=== PATIENT | female | born 1970 | race Caucasian/White ===

== ENCOUNTER 2024-04-23 07:49 | Outpatient (AMB) | payer OTHER, SELFPAY ==
--- NOTE | 2024-04-23 07:54 | MHC.OFFVIS ---
Vital Signs 04/23/24 08:01 Height 5 ft 4 in Weight 203 lb 6 oz BMI 34.9 BP 126/70 Blood Pressure Location Rt brachial Position Sitting Respiration 16 Pulse 65 Pulse Source Pulse Oximeter Pulse Oximetry (%) 97 Oxygen Delivery Method Room Air Intake Visit Reasons: ENP: R sided weakness/frequent falls - Confirmed Intake Note: Pt presents to the office for new pt consultation for right sided weakness and frequent falls. 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 muffled speech etc.The episodes lasted few seconds- taking a deep breath helped.SHe was worked up for TIA MRI brain showed non specific white matter changes, carotid doppler was normal ASHANTI normal Lyme negative LDL was elevated and she was started on atorvostatin . she has h/o anxiety and was very stressed at that time. she has h/o labrynthitis and has balance issues . she had a fall when she rushed down the stairs 1 year ago.No falls since then she denies double vision. she has hand tingling and was told she had carpal tunnel. In 2018 she was seen by Dr Rodríguez- he did EEG which was normal MRI showed white matter changes. she denies headaches during these episodes. she feels her espidoes have decreased- she feels her right leg drags when she is walking , she ott sword finding difficulties. Mood- is better. She is sleeping better with trazadone. she has loud snoring , Has some daytime fatigue. she started having mood issues 30 years ago when she was going through marital issues.she feels she did not deal with her parents divorce. she was seeing a psychiatrist about 20 years ago . [facility] Medical History (Updated 04/23/24 @ 08:53 by Kerline Rain MD) Anxiety Hypersomnia Snoring Transient neurological symptoms Slurring of speech Asthma Obesity Pure hyperglyceridemia Vertigo Chondrocalcinosis Cyst of right ovary Ovarian tumor, malignant Insomnia Anxiety (~04/23/24) Surgical History H/O medial meniscus repair of left knee H/O total hysterectomy Social History Alcohol intake: current Comment: 5 drinks/week Patient Tobacco Use Status: Former Tobacco user Years Smoked: 20 years Physical Exam Vital Signs: Last Vital Signs Pulse 65 04/23/24 08:01 Resp 16 04/23/24 08:01 BP 126/70 04/23/24 08:01 Pulse Ox 97 04/23/24 08:01 Oxygen Delivery Method Room Air 04/23/24 08:01 BMI result Body Mass Index 34.9 Const General: cooperative, healthy appearing, comfortable and no acute distress Nutritional Appearance: obese Orientation/consciousness: patient oriented x3 Eyes Pupils: Equal, round and reactive pupils present Neck Neck: Yes no meningeal signs Neuro General: patient oriented x3, gait normal, tone normal, moves all extremities, no meningeal signs and no focal motor deficits Cranial nerves: Yes Facial sensation intact/muscles of mastication intact, Yes Equal, round and reactive pupils present, Yes Bilaterally intact EOM present, Yes Nystagmus not present, Yes Midline tongue present, Yes Symmetric palate elevation present and Yes Ability to bilaterally elevate shoulders present Cognition (Neuro): normal cognition Gait exam (Neuro): Normal gait present Motor exam (neuro): 5/5 motor strength present throughout and Normal motor muscle tone present throughout Deep tendon reflexes (DTR's): Right triceps reflex intensity grade: 1+, Left triceps reflex intensity grade: 1+, Rt Biceps (C5, C6): 1+, Left biceps reflex intensity grade: 1+, Right brachioradialis reflex intensity grade: 1+, Left brachioradialis reflex intensity grade: 1+, Right patellar reflex intensity grade: 1+ and Left patellar reflex intensity grade: 1+ Coordination: [id number] test normal Psych Appearance: grossly normal Affect: Anxious affect present Assessment & Plan Assessment & Plan (1) Slurring of speech: Comment: ? anxiety related Code(s): R47.81 - Slurred speech Category: Medical (2) Transient neurological symptoms: Code(s): R29.818 - Other symptoms and signs involving the nervous system Category: Medical (3) Snoring: Code(s): R06.83 - Snoring Category: Medical (4) Hypersomnia: Code(s): G47.10 - Hypersomnia, unspecified Category: Medical Plan will evaluate her with Home sleep test to r/o sleep apnea MRI brain Carotid doppler will consider starting aspirin 81mg qd Psyhcology ref for management of anxiety Orders: Orders RT home sleep study Today G47.10 - Hypersomnia, unspecified, R06.83 - Snoring MR head/brain wo con Today R29.818 - Other symptoms and signs involving the nervous system, R47.81 - Slurred speech US carotid duplex BI Today R29.818 - Other symptoms and signs involving the nervous system, R47.81 - Slurred speech Referrals Psychology Referral F41.9 - Anxiety disorder, unspecified Coding Level of Care Code New Pt Level 4 (24239) Complex EM visit Add On G2211 Diagnoses Slurring of speech R47.81 Transient neurological symptoms R29.818 Snoring R06.83 Hypersomnia G47.10
[2024-04-23 08:01] VITALS: BP 126/70; PULSE 65; RESP 16; O2SAT 97; BMI 34.9
== END 2024-04-23 08:57 | disposition home or self-care (01) ==
PROVIDERS: PCP Student in an Organized Health Care Education/Training Program; Visit Provider Psychiatry & Neurology Neurology
DX: R47.81 Slurred speech (principal); R29.818 Other symptoms and signs involving the nervous system; R06.83 Snoring; G47.10 Hypersomnia, unspecified
CPT/HCPCS: 99204; G2211

== ENCOUNTER → 2024-04-23 07:49 | Outpatient (BNVA) | payer OTHER, SELFPAY | PROVIDERS: PCP Student in an Organized Health Care Education/Training Program; Visit Provider Psychiatry & Neurology Neurology ==

== ENCOUNTER 2024-05-11 14:51 | Outpatient (REF) | payer OTHER, SELFPAY ==
--- NOTE | ~2024-05-11 | US_ITS ---
EXAMINATION: US EXTRACRANIAL CAROTID DUPLEX, BILATERAL CLINICAL INFORMATION: Slurred speech COMPARISON: None available. TECHNIQUE: Real-time ultrasound and Doppler techniques (integrating B-mode 2-D vascular images, Doppler spectral analysis and color-flow Doppler imaging) were utilized to interrogate the extracranial carotid arteries, the vertebral arteries and proximal subclavian arteries bilaterally. The degree of stenosis is determined by criteria similar to NASCET. FINDINGS: Right Side: 1. There is no atherosclerotic plaque seen in the bifurcation/proximal ICA region. 2. The common carotid artery PSV proximally is 110 cm/s and distally 84 cm/s. 3. The proximal internal carotid artery velocities are 62 cm/s systolic and 15 cm/s diastolic. 4. The proximal external carotid artery PSV is 83 cm/s. 5. The vertebral artery shows antegrade flow. 6. The subclavian artery waveforms are normal. Left Side: 1. There is no atherosclerotic plaque seen in the bifurcation/proximal ICA region. 2. The common carotid artery PSV proximally is 97 cm/s and distally 74 cm/s. 3. The proximal internal carotid artery velocities are 74 cm/s systolic and 15 cm/s diastolic. 4. The proximal external carotid artery PSV is 94 cm/s. 5. The vertebral artery shows antegrade flow. 6. The subclavian artery waveforms are normal. US/US carotid duplex BI IMPRESSION: 1. RIGHT: Normal right internal carotid artery without atherosclerotic plaque or hemodynamically significant stenosis. 2. LEFT: Normal left internal carotid artery without atherosclerotic plaque or hemodynamically significant stenosis. Electronically signed by: Ruby Gavin MD 05/14/2024 12:06 PM EDT
== END 2024-05-11 14:52 | disposition home or self-care (01) ==
LOC: HO.US 14:51
PROVIDERS: PCP Student in an Organized Health Care Education/Training Program; Visit Provider Psychiatry & Neurology Neurology
DX: R29.818 Other symptoms and signs involving the nervous system (principal); R47.81 Slurred speech
CPT/HCPCS: 93880

== ENCOUNTER → 2024-05-20 15:32 | Outpatient (REF) | payer OTHER, SELFPAY | LOC: HO.SL 15:32 | PROVIDERS: PCP Student in an Organized Health Care Education/Training Program; Visit Provider Psychiatry & Neurology Neurology | DX: G47.10 Hypersomnia, unspecified (principal); R06.83 Snoring | CPT/HCPCS: 95806 ==

== ENCOUNTER → 2024-05-20 15:59 | Outpatient (BNV) | payer OTHER, SELFPAY | PROVIDERS: PCP Student in an Organized Health Care Education/Training Program; Visit Provider Psychiatry & Neurology Neurology | DX: R06.83 Snoring (principal); G47.10 Hypersomnia, unspecified | CPT/HCPCS: 95806 ==

== ENCOUNTER 2024-07-27 16:32 | Outpatient (REF) | payer OTHER, SELFPAY ==
--- NOTE | ~2024-07-27 | MR_ITS ---
EXAMINATION: MR BRAIN WITHOUT CONTRAST CLINICAL INFORMATION: Right-sided neurologic symptoms. COMPARISON: None available. TECHNIQUE: MRI of the brain was obtained using routine sequences without contrast. FINDINGS: No focal restricted diffusion is demonstrated to suggest acute or subacute cerebral ischemia. No evidence of acute or chronic hemorrhagic products on heme-sensitive imaging. Few scattered periventricular and deep white matter T2 FLAIR hyperintensities (some of which are in a perivenular distribution). The ventricles are normal in morphology and size. No abnormal mass effect. No midline shift. Normal appearance of the pituitary gland. Normal positioning of the cerebellar tonsils. Normal arterial and venous vascular flow voids are present. Normal, homogeneous marrow signal. Mild mucosal thickening of the paranasal sinuses. No signal abnormalities within the mastoids. MR/MR head/brain wo con IMPRESSION: 1. No acute intracranial abnormalities. 2. Mild nonspecific white matter changes. While these changes are nonspecific, the distribution could be seen as sequela of a demyelinating process. Electronically signed by: Darrel Ibrahim DO 08/11/2024 07:12 AM GENNA SCHMITZ
== END 2024-07-27 16:33 | disposition home or self-care (01) ==
LOC: HO.MRI 16:32
PROVIDERS: PCP Student in an Organized Health Care Education/Training Program; Visit Provider Psychiatry & Neurology Neurology
DX: R29.818 Other symptoms and signs involving the nervous system (principal); R47.81 Slurred speech
CPT/HCPCS: 70551

== ENCOUNTER → 2024-08-04 20:30 | Outpatient (REF) | payer OTHER, SELFPAY | LOC: HO.SL 20:30 | PROVIDERS: PCP Student in an Organized Health Care Education/Training Program; Visit Provider Psychiatry & Neurology Neurology | DX: R06.83 Snoring (principal); G47.10 Hypersomnia, unspecified | CPT/HCPCS: 95810 ==

== ENCOUNTER → 2024-08-04 22:07 | Outpatient (BNV) | payer OTHER, SELFPAY | PROVIDERS: PCP Student in an Organized Health Care Education/Training Program; Visit Provider Psychiatry & Neurology Neurology | DX: G47.33 Obstructive sleep apnea (adult) (pediatric) (principal) | CPT/HCPCS: 95810 ==

== ENCOUNTER 2024-12-14 08:31 | Outpatient (AMB) | payer OTHER, SELFPAY ==
--- NOTE | 2024-12-14 08:33 | MHC.PC.OV ---
Vital Signs 12/14/24 08:42 Height 5 ft 4 in Weight 213 lb 8 oz BMI 36.6 BP 138/76 Blood Pressure Location Rt brachial Position Sitting Respiration 16 Pulse 71 Pulse Source Pulse Oximeter Temp 97.7 F Temp Source Oral Pulse Oximetry (%) 97 Oxygen Delivery Method Room Air Intake Visit Reasons: Est care / anxiety Intake Note: patient here for new patient visit Artificial Leather Calender Operator Required: No Is last menstrual period known: No Post menopausal: No Patient : No Allergies No Known Allergies Allergy (Verified 12/14/24 08:56) Medication List - Last Reconciled 12/14/24 by Linda Amaya CNP magnesium chloride mg PO omega-3 fatty acids 500 mg PO DAILY sertraline 25 mg PO DAILY trazodone 50 mg PO DAILY vitamin B comp and C no.3 (B Complex Plus Vitamin C) 1 cap PO DAILY Tobacco use date assessed: 12/14/24 Dental Screening Dental Screen Date: 12/14/24 Did you have a dental visit in the last 12 months?: Yes Did you have a dental problem in the last 6 months where you did not have access to dental care?: No Was dental information given to patient?: Patient has dentist HPI HPI Comments History of Present Illness Details 54-year-old female presents to [facility] care. Prior PCP? - [facility] Last office visit - 6 months ago Last /CPE/labs - About 1.5 years Acute issue(s) - Seasonal depression and Anxiety: She notes that she is depressed only in the winter. Her anxiety and depressive symptoms are well controlled. She is not followed by a therapist or psychiatrist. She is on sertraline 25 mg daily. - Insomnia: She notes that she generally sleeps well. She is prescribed trazodone 50 mg at bedtime but takes 25 mg at bedtime with good result. - Reports persistent soreness and clicking of the right thumb for the past 3 weeks. - Myopia and hyperopia: Wears prescription glasses Past Medical History - Asthma (no flar-up for the past 10 years), obesity, dyslipidemia,vertigo, chondrocalcinosis, malignant right ovarian tumor, slurring of speech (? Anxiety), transient neurological symptoms, hypersomnia, snoring, memory loss, sleep apnea on CPAP, arthritis of both thumbs, anxiety, myopia, hyperopia, insomnia Surgical History - Appendectomy, placement of ear tubes, medial meniscus repair of left knee, total hysterectomy Family History - Mom: Asthma, diabetes, depression Social History - Former smoker, quit 4 years, smoked 3 cigarettes daily for about 30 years. Vapes nicotine daily. Drinks 3 mixed drink on Saturdays. Denies recreational drug use - She makes unhealthy dietary choices especially in the evenings; she has gained 20 lb in the past 1 year. Exercises routinely. Generally sleep well Health maintenance - Last eye exam was 2 years ago at [facility]. Encouraged to schedule an eye exam. She will sign a release for her PCP to obtain her ophthalmology record - Last dental visit was yesterday - Last tetanus vaccine was more than 10 years ago; received Tdap today - Has not been vaccinated for the flu this season; declines vaccination - She has not been vaccinated for shingles and pneumonia; encouraged to get vaccinated for both at the local pharmacy - Last pap smear test was in 2018: Normal. She no longer performs pap smear test. She requests referral to cutting machine tender helper for woman wellness folllow up - Last mammogram was in 05/2023: normal. Mammogram ordered. - Last colonoscopy was 3 years ago at [facility]: normal. Recommended to follow up in 10 years. Initial colonoscopy revealed benign polyps. Will request recent colonoscopy record for review [facility] Medical History (Updated 12/14/24 @ 15:04 by Linda Amaya CNP) Memory loss Arthritis Anxiety Hypersomnia Snoring Transient neurological symptoms Slurring of speech Asthma Obesity Pure hyperglyceridemia Vertigo Chondrocalcinosis Cyst of right ovary Ovarian tumor, malignant Insomnia Anxiety (~04/23/24) Surgical History (Updated 12/14/24 @ 08:53 by Fior Negro MA) Hx of appendectomy History of placement of ear tubes H/O medial meniscus repair of left knee H/O total hysterectomy Family History (Updated 12/14/24 @ 08:50 by Fior Negro MA) Sister Substance abuse Mother Depression Asthma Diabetes Social History Housing: House Alcohol intake: current Comment: 5 drinks/week Patient Tobacco Use Status: Former Tobacco user Cigarettes Per Day: 3 Years Smoked: 20 years e-Cigarette/Vaping Use: Currently Using Second Hand Smoke Exposure: Yes service: No Current occupational status: employed 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 1. Little interest or pleasure in doing things: not at all 2. Feeling down, depressed, or hopeless: not at all 3. Trouble falling or staying asleep, or sleeping too much: not at all 4. Feeling tired or having little energy: several days 5. Poor appetite or overeating: several days 6. Feeling bad about yourself - or that you are a failure or have let yourself or your family down: several days 7. Trouble concentrating on things, such as reading the newspaper or watching television: several days 8. Moving or speaking so slowly that other people could have noticed. Or the opposite - being so fidgety or restless that you have been moving around a lot more than usual: not at all 9. Thoughts that you would be better off or of hurting yourself in some way: not at all Total score: 4 Depression Screening Interpretation: Negative Depression Screening Done: Yes 44842 - PHQ-9 Billing: Yes Source: Developed by Drs. Marcel Little, Laquita Guerra, Gasper Razo and colleagues, with an educational angela from [employer]. Thrive Questionnaire Date Thrive assessed: 12/14/24 I am a: Patient What is your living situation today?: I have a steady place to live Within the past 12 months, did the food you bought not last and you didn't have the money to get more?: Never true Within the past 12 months, did you worry whether your food would run out before you got money to buy more?: Never true Do you have trouble paying for medicines?: No Do you have trouble getting transportation to medical appointments?: No Do you have trouble paying your heating and electricity bill?: No Do you have trouble taking care of your child, family member or friend?: No Do you have trouble with day-to-day activities such as bathing, preparing meals, shopping, managing finances, etc.?: No Are you currently unemployed and looking for a job?: No Are you interested in more education?: No Please select the resources that you would like help with: None Currently or been in a relationship where the following occur: No concerns reported THRIVE Score: 0 AUDIT C Alcohol Use Questionnaire (AUDIT-C) 1. How often do you have a drink containing alcohol?: 2-3 times a week 2. How many drinks containing alcohol do you have on a typical day when you are drinking?: 1 or 2 3. How often do you have six or more drinks on one occasion?: Less than monthly Total Score: 4 Score Reviewed/Action Taken: Yes VJ-7 AMB Questionnaire VJ-7 Date VJ - 7 assessed: 12/14/24 Feeling nervous, anxious, or on edge: 0 = Not at all Not being able to stop or control worryin = Not at all Worrying too much about different things: 1 = Several days Trouble relaxin = Several days Being so restless that it is hard to sit still: 1 = Several days Becoming easily annoyed or irritable: 1 = Several days Feeling afraid as if something awful might happen: 0 = Not at all Total VJ-7 score (0-4 normal; 5-9 mild; 10-14 moderate; 15-21 severe): 4 Source: Developed by Drs. Marcel Little, Laquita Guerra, Gasper Razo and colleagues, with an educational angela from [employer]. VJ-7 Assessment Billing VJ-7 Assessment Tool: VJ-7 Assessment 53848 ACT Questionnaire In the past 4 weeks, how much of the time did your asthma keep you from getting as much done at work, school or at home?: None of the time During the past 4 weeks, how often have you had shortness of breath?: 1-2 times a week During the past 4 weeks, how often did your asthma symptoms wake you up at night or earlier than usual in the morning?: Not at all During the past 4 weeks, how often have you had to use your rescue inhaler or nebulizer medication?: Not at all How would you rate your asthma control during the past 4 weeks?: Completely controlled ACT Interpretation: Negative Score: 24 Review of Systems Const Details: Denies chills, Denies fatigue, Denies fever(s), Denies headache(s) and Denies weakness HEENT Denies change in vision, Denies dizziness, Denies headache(s), Denies hearing loss, Denies nasal congestion, Denies sinus pain, Denies sinus pressure and Denies sore throat Card Denies chest pain, Denies lightheadedness, Denies dyspnea and Denies other (palpitations) Resp Denies cough, Denies dyspnea and Denies wheezing GI Denies abdominal pain, Denies melena, Denies hematochezia, Denies change in bowel habits, Denies dyspepsia and Denies nausea Denies hematuria and Denies dysuria Musc Reports as per HPI Skin/Breast Denies rash, Denies unusual bruising and Denies wounds Neuro Denies abnormal gait, Denies dizziness, Denies headache(s), Denies memory loss, Denies numbness, Denies Sensory deficit (Neuro), Denies tingling and Denies weakness Psych Denies anxiety, Denies depression and Denies memory loss Endo Denies cold intolerance, Denies fatigue, Denies heat intolerance, Denies polydipsia and Denies polyuria Everett/Lymph Denies easy bleeding and Denies easy bruising Aller/Immun Denies wheezing Physical exam (Primary Care) Vital Signs: Last Vital Signs Temp 97.7 F 12/14/24 08:42 Pulse 71 12/14/24 08:42 Resp 16 12/14/24 08:42 BP 138/76 12/14/24 08:42 Pulse Ox 97 12/14/24 08:42 Oxygen Delivery Method Room Air 12/14/24 08:42 BMI result Body Mass Index 36.6 Tobacco/Smoking Status: Tobacco use Status Tobacco use date assessed 12/14/24 12/14/24 08:41 Patient Tobacco Use Status Former Tobacco user 12/14/24 08:33 e-Cigarette/Vaping Use Currently Using 12/14/24 08:41 PHQ-9: PHQ-9 Score PHQ-9: Total score 4 12/14/24 09:02 Depression Screening Interpretation: Negative Thrive Assessment: Date of Thrive Assessment Date Thrive assessed 12/14/24 12/14/24 08:41 Currently or been in a relationship where the following occur: No concerns reported Const Other: General: no acute distress, well developed, alert and awake Nutritional Appearance: well nourished Orientation/consciousness: patient oriented x3 HENMT Head: Yes normocephalic and Yes atraumatic Ears: hearing grossly normal bilaterally and TM's normal bilaterally General nose exam: Normal external nose present and Normal nares present Mouth: Normal oral and palatal mucosa present and moist mucous membranes Teeth and gingiva: dentition normal Throat: Yes oropharynx normal Eyes Pupils: Equal, round and reactive pupils present and Pupil accommodation reflex normal EOM: EOMs intact bilaterally Neck Neck: Yes normal visual inspection, Yes no lymphadenopathy and Yes trachea midline Thyroid: Thyroid normal Carotids: no bruits Lymphatic: no lymphadenopathy noted Chest Chest palpation & inspection: normal inspection of the chest Resp Effort & Inspection: normal respiratory effort Auscultation: clear to auscultation bilaterally Cardio Rate: regular rate Rhythm: regular rhythm Heart sounds: S1 normal heart sound present, S2 normal heart sound present, no gallops, no murmurs and no rubs Bruits: no abdominal aortic bruits and no carotid bruits GI Palpation (GI): No Abdominal aortic bruit present, Soft to palpation, nontender, No hepatosplenomegaly present and No Rebound tenderness present Auscultation: normal bowel sounds General: Yes no CVA tenderness Back/Spine/Pelvis Back: no CVA tenderness Cervical Spine: cervical ROM normal and No Cervical spine tenderness Thoracic/Lumbar Spine: thoraco-lumbar ROM normal, No pain with thoraco-lumbar ROM, No thoracic spinal tenderness and No lumbar spinal tenderness Skin General: warm and dry. Normal skin color. Normal skin turgor Lesions: no lesions Rashes: no rashes Trauma: no lacerations or abrasions Wounds: no wounds Nails: normal Neuro General: patient oriented x3, gait normal and CN's II-XI intact bilaterally Cranial nerves: Yes Equal, round and reactive pupils present Cognition (Neuro): normal cognition Gait exam (Neuro): Normal gait present Motor exam (neuro): 5/5 motor strength present throughout Sensory Exam: No Sensory deficit (Neuro) Deep tendon reflexes (DTR's): Right patellar reflex intensity grade: 2+ and Left patellar reflex intensity grade: 2+ Extrem General: Yes normal to inspection, No edema and No calf tenderness Psych Appearance: grossly normal Affect: normal affect Attitude: cooperative Thought process: Normal thought process present Immunizations Boostrix Tdap 2.5 Lf unit-8 mcg-5 Lf/0.5 mL intramuscular syringe Performing Provider: Linda Amaya CNP Performing Location: [facility] Administered by: Gladis Morrison RN on 12/14/24 09:39 Dose Route Admin Location Dispensed Lot Number Expiration Date [facility] Brush Or Broom Cutter 0.5 mL IM Left Deltoid 0.5 mL [id number] 09/10/26 [id number] [employer] VIS Given Date VIS Provided VIS Publication Date 12/14/24 Single Vaccine 21 Eligibility Eligibility Date Funding Source Not [facility] Eligible 12/14/24 Private Coding Level of Care Code New Pt Level 3 (91468) New Pt Prev Care 40-64y(83603) Diagnoses Normal physical examination, routine Z00.00 Seasonal depression F33.8 Anxiety F41.9 Insomnia G47.00 Arthritis M19.90 Sleep apnea G47.30 Breast cancer screening Z12.39 Morbid obesity E66.01 Engages in vaping Z72.89 Well woman exam Z01.419 Vaccine counseling Z71.85 Laboratory tests ordered as part of a complete physical exam (CPE) Z00.00 Additional Codes VJ-7 Assessment Billing - VJ-7 Assessment Tool: VJ-7 Assessment 49354 ([id number]) PHQ-9 - 54095 - PHQ-9 Billing: Yes ([id number]) Asthma Control Questionnaire - ACT Interpretation: Negative ([id number]) Assessment & Plan Assessment & Plan (1) Normal physical examination, routine: Code(s): Z00.00 - Encounter for general adult medical examination without abnormal findings Category: Medical Plan: No significant functional limitation. Advised to perform lab work and follow-up for telehealth visit in 2-3 weeks for labs review. Return sooner with symptoms or concerns. Verbalized understanding and agreed with the plan. (2) Seasonal depression: Code(s): F33.8 - Other recurrent depressive disorders Category: Medical Plan: Anxiety and depressive symptoms of been controlled. PHQ-9 and VJ-7 scores are normal. Continue current treatment regimen. Routine exercise encouraged. Follow-up with worsening or new symptoms. Verbalized understanding and agreed with the plan. (3) Anxiety: Code(s): F41.9 - Anxiety disorder, unspecified Category: Medical Plan: Plan as above. (4) Insomnia: Code(s): G47.00 - Insomnia, unspecified Category: Medical Plan: She generally sleeps well. Continue current treatment regimen. Routine exercise encouraged. Follow-up as needed. Verbalized understanding and agreed with the plan. (5) Arthritis: Code(s): M19.90 - Unspecified osteoarthritis, unspecified site Category: Medical Plan: Reports persistent soreness and clicking of the right thumb for the past 3 weeks. She has history of arthritis of both thumbs. No erythema, edema, or overt injury/trauma noted. May take Tylenol ibuprofen for pain or discomfort. Follow-up with worsening or new symptoms. Verbalized understanding and agreed with the plan. (6) Sleep apnea: Code(s): G47.30 - Sleep apnea, unspecified Category: Medical Plan: On CPAP. (7) Breast cancer screening: Code(s): Z12.39 - Encounter for other screening for malignant neoplasm of breast Category: Medical Plan: Last mammogram was in 05/2023: normal. Mammogram ordered. (8) Morbid obesity: Code(s): E66.01 - Morbid (severe) obesity due to excess calories Category: Medical Plan: She currently weighs 213 lb, BMI is 36.6. She makes unhealthy dietary choices especially in the evenings; she has gained 20 lb in the past 1 year. To exercise routinely. Declines referral to quantometer operator/dietitian or with management at this time and notes she will continue with lifestyle changes. Healthy diet and routine exercise encouraged. Follow-up as needed. Verbalized understanding and agreed with the plan. (9) Engages in vaping: Code(s): Z72.89 - Other problems related to lifestyle Category: Medical Plan: She vapes nicotine daily. Instructed on the health risks and complications of nicotine and vaping and cessation encouraged. Declines treatment for nicotine cessation. Advised to follow-up as needed. Verbalized understanding and agreed with the plan. (10) Well woman exam: Code(s): Z01.419 - Encounter for gynecological examination (general) (routine) without abnormal findings Category: Medical Plan: Last pap smear test was in 2017: Normal. She no longer performs pap smear test. She requests referral to cutting machine tender helper for well woman exam. Referred to [facility] oracle application architect. (11) Vaccine counseling: Code(s): Z71.85 - Encounter for immunization safety counseling Category: Medical Plan: She has not been vaccinated for shingles and pneumonia; instructed on importance of vaccination and encouraged to get vaccinated for both at the local pharmacy. Verbalized understanding and agreed with plan. (12) Laboratory tests ordered as part of a complete physical exam (CPE): Code(s): Z00.00 - Encounter for general adult medical examination without abnormal findings Category: Medical Plan: Fasting labs ordered as part of a complete physical exam. Advised to fast for at least 10 hours before getting labs drawn. May drink water Verbalized understanding and agreed with treatment plan. Orders: Orders Complete Blood Count Auto Diff Today Z00.00 - Encounter for general adult medical examination without abnormal findings Comprehensive [place]. Panel Fast Today Z00.00 - Encounter for general adult medical examination without abnormal findings UA CC w/rflx Micro + Cult Today Z00.00 - Encounter for general adult medical examination without abnormal findings Vitamin D 25-OH Total Today Z00.00 - Encounter for general adult medical examination without abnormal findings MM screening mammo BI Today Z12.31 - Encounter for screening mammogram for malignant neoplasm of breast TDaP Immunization Today Z23 - Encounter for immunization Lipid Panel Today Z00.00 - Encounter for general adult medical examination without abnormal findings Microalbumin, Random (w Creat) Today Z00.00 - Encounter for general adult medical examination without abnormal findings TSH reflex Free T4 Today Z00.00 - Encounter for general adult medical examination without abnormal findings Referrals ROUTER TENDER Referral Z01.419 - Encounter for gynecological examination (general) (routine) without abnormal findings
[2024-12-14 08:42] VITALS: BP 138/76; PULSE 71; RESP 16; TEMP 36.5; O2SAT 97; BMI 36.6
== END 2024-12-14 09:42 | disposition home or self-care (01) ==
LOC: HO.HMCFM 08:32
PROVIDERS: PCP Student in an Organized Health Care Education/Training Program; Visit Provider Nurse Practitioner Family
DX: Z00.00 Encounter for general adult medical examination without abnormal findings (principal); F33.8 Other recurrent depressive disorders; E66.01 Morbid (severe) obesity due to excess calories; Z68.36 Body mass index [BMI] 36.0-36.9, adult; F41.9 Anxiety disorder, unspecified; G47.00 Insomnia, unspecified; M19.90 Unspecified osteoarthritis, unspecified site; G47.30 Sleep apnea, unspecified; Z12.39 Encounter for other screening for malignant neoplasm of breast; Z72.89 Other problems related to lifestyle; Z71.85 Encounter for immunization safety counseling; Z23 Encounter for immunization

== ENCOUNTER → 2024-12-14 08:31 | Outpatient (BNVA) | payer OTHER, SELFPAY | PROVIDERS: PCP Student in an Organized Health Care Education/Training Program; Visit Provider Nurse Practitioner Family | DX: Z00.00 Encounter for general adult medical examination without abnormal findings (principal); Z23 Encounter for immunization; Z71.85 Encounter for immunization safety counseling; F33.8 Other recurrent depressive disorders; F41.9 Anxiety disorder, unspecified; G47.00 Insomnia, unspecified; M19.90 Unspecified osteoarthritis, unspecified site; G47.30 Sleep apnea, unspecified; E66.01 Morbid (severe) obesity due to excess calories; Z68.36 Body mass index [BMI] 36.0-36.9, adult; Z72.89 Other problems related to lifestyle; Z99.89 Dependence on other enabling machines and devices | CPT/HCPCS: 90471; 90715; 96127; 96160 ==

== ENCOUNTER 2024-12-30 07:32 | Outpatient (REF) | payer OTHER, SELFPAY ==
[2024-12-30 11:23] LABS: MANUAL DIFF FLAG NO
[2024-12-30 11:31] LABS: Basophils Percent Auto 0.8 % (0-2); Eosinophils Absolute Auto 0.2 X10*3/uL (0.0-0.4); Hematocrit 40.5 % (37.0-47.0); Imm Gran Abs Auto 0.02 X10*3/uL (0.00-0.03); Imm Gran Pct Auto 0.4 % (0.0-0.4); Lymphocytes Absolute Auto 1.6 X10*3/uL (1.2-4.9); Lymphocytes Percent Auto 30.8 % (20-40); Mean Corpuscular HGB Conc 32.1 g/dl (31.0-35.0); Mean Corpuscular Volume 87.1 fL (80.0-98.0); Mean Platelet Volume 10.5 fL (9.4-12.3); Monocytes Absolute Auto 0.2 X10*3/uL (0.1-1.2); Monocytes Percent Auto 4.5 % (2-11); Neutrophils Absolute Auto 3.2 x10*3/uL (2.0-8.3); Neutrophils Percent Auto 60.5 % (45-73); Platelet Count 210 X10*3/uL (160-400); Red Blood Count 4.65 X10*6/uL (4.20-5.50); White Blood Count 5.3 X10*3/uL (4.8-10.8)
[2024-12-30 11:40] LABS: Appearance Urine Clear; Color Urine Yellow; Glucose Urine UA Negative (Negative); Leukocyte Esterase Urine Small (1+) (Negative); Nitrite Urine Negative (Negative); UMIC TRIGGER UACC YES; Urine Blood Negative (Negative); Urine Ketones Negative (Negative); Urine Protein Negative (Neg-Trace)
[2024-12-30 11:48] LABS: Bacteria Urine None Seen (None Seen); Hyaline Casts Urine 0-2 /LPF (0-2); RBC Urine 0-2 /HPF (0-2); Squamous Epithelial Cell Urine 0-2 /HPF (0-2); UACC Culture Trigger YES
[2024-12-30 12:08] LABS: Creatinine Urine 62.76 mg/dL; Microalbumin Urine < 5.0 mg/L
[2024-12-30 12:17] LABS: Alanine Aminotransferase 19 U/L (0-31); Albumin Level 4.2 g/dL (3.5-5.0); Alkaline Phosphatase 79 U/L (39-117); Anion Gap 11 (12-20); Aspartate Amino Transferase 22 U/L (5-31); Bilirubin Total 0.4 mg/dL (0.0-1.0); Blood Urea Nitrogen 12 mg/dL (9-16); Calcium 9.8 mg/dL (8.4-10.2); Carbon Dioxide 29 mmol/L (22-29); Chloride 104 mmol/L (96-108); Cholesterol 204 mg/dL (<200); Estimated Glomerular Filt Rate > 60; Glucose Fasting 113 mg/dL (60-99); HDL Cholesterol 73 mg/dL (>40); LDL Cholesterol Calculated 114 mg/dL (<100); Potassium 4.1 mmol/L (3.3-5.1); Sodium 140 mmol/L (135-145); Triglycerides 86 mg/dL (<150)
== END 2024-12-30 07:33 | disposition home or self-care (01) ==
LOC: HO.WFDLDS 07:32
PROVIDERS: Visit Provider Nurse Practitioner Family
DX: Z00.00 Encounter for general adult medical examination without abnormal findings (principal); Z13.6 Encounter for screening for cardiovascular disorders
CPT/HCPCS: 36415; 80053; 80061; 81001; 82043; 82306; 82570; 84443; 85025; 87086

== ENCOUNTER 2025-01-04 13:29 | Outpatient (AMB) | payer OTHER, SELFPAY ==
--- NOTE | 2025-01-04 13:25 | A.OFFPC_ITS ---
Intake Visit Reasons: Telehealth 2-3 wks labs review Intake Note: patient here for 2-3 wks telehealth follow up for lab review Buzzsaw Operator Required: No Is last menstrual period known: No Post menopausal: No Patient : No Allergies No Known Allergies Allergy (Verified 01/04/25 13:25) Tobacco use date assessed: 01/04/25 Dental Screening Dental Screen Date: 01/04/25 Did you have a dental visit in the last 12 months?: Yes Did you have a dental problem in the last 6 months where you did not have access to dental care?: No Was dental information given to patient?: Patient has dentist HPI HPI Comments History of Present Illness Details 54-year-old female presents for review o f recent lab results. She admits to taking her medications as prescribed without adverse reactions. She reports trigger finger of the right thumb which is painful with bending back and forth. [facility] Medical History (Updated 01/04/25 @ 14:35 by Linda Amaya CNP) Memory loss Arthritis Anxiety Hypersomnia Snoring Transient neurological symptoms Slurring of speech Asthma Obesity Pure hyperglyceridemia Vertigo Chondrocalcinosis Cyst of right ovary Ovarian tumor, malignant Insomnia Anxiety (~04/23/24) Surgical History (Updated 12/14/24 @ 08:53 by Fior Negro MA) Hx of appendectomy History of placement of ear tubes H/O medial meniscus repair of left knee H/O total hysterectomy Family History (Updated 12/14/24 @ 08:50 by Fior Negro MA) Sister Substance abuse Mother Depression Asthma Diabetes Social History Housing: House Alcohol intake: current Comment: 5 drinks/week Patient Tobacco Use Status: Former Tobacco user Cigarettes Per Day: 3 Years Smoked: 20 years Packs per year/per ci.00 e-Cigarette/Vaping Use: Currently Using Second Hand Smoke Exposure: Yes Patient : No service: No Current occupational status: employed 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 Current occupational exposures/hazards: No Cognitive needs: No Hearing needs: No Vision needs: Yes Questionnaire Thrive Questionnaire Date Thrive assessed: 12/08/24 I am a: Patient What is your living situation today?: I have a steady place to live Within the past 12 months, did the food you bought not last and you didn't have the money to get more?: Never true Within the past 12 months, did you worry whether your food would run out before you got money to buy more?: Never true Do you have trouble paying for medicines?: No Do you have trouble getting transportation to medical appointments?: No Do you have trouble paying your heating and electricity bill?: No Do you have trouble taking care of your child, family member or friend?: No Do you have trouble with day-to-day activities such as bathing, preparing meals, shopping, managing finances, etc.?: No Are you currently unemployed and looking for a job?: No Are you interested in more education?: No Please select the resources that you would like help with: None Currently or been in a relationship where the following occur: No concerns reported THRIVE Score: 0 VJ-7 AMB Questionnaire VJ-7 Date VJ - 7 assessed: 12/14/24 Source: Developed by Drs. Marcel Little, Laquita Guerra, Gasper Razo and colleagues, with an educational angela from [employer]. Review of Systems Const Details: Denies chills, Denies fatigue, Denies fever(s), Denies headache(s) and Denies weakness Cardiac Denies chest pain, Denies claudication, Denies leg edema, Denies lightheadedness, Denies palpitations, Denies dyspnea, Denies dyspnea on exertion, Denies orthopnea and Denies other (Loss of consciousness) Resp Denies cough, Denies excessive phlegm production, Denies dyspnea, Denies dyspnea on exertion, Denies snoring and Denies wheezing Musc Reports as per HPI Physical exam (Primary Care) Tobacco/Smoking Status: Tobacco use Status Tobacco use date assessed 01/04/25 01/04/25 13:26 Patient Tobacco Use Status Former Tobacco user 01/04/25 13:26 e-Cigarette/Vaping Use Currently Using 01/04/25 13:26 Thrive Assessment: Date of Thrive Assessment Date Thrive assessed 12/08/24 01/04/25 13:26 Currently or been in a relationship where the following occur: No concerns reported Const Other: Patient is alert and oriented x3 Telehealth Telehealth Telehealth Platform: Telephone Location of provider rendering services: practice address Location of patient: address on file Patient Identification confirmed using: Name, : Yes Telehealth method: voice only Patient verbally consented to treatment: Yes Patient verbally consented to billing insurance company: Yes Patient informed of any privacy concerns related to visit: Yes Coding Level of Care Code Tele Est Pt Level 3 (21279) Diagnoses Elevated fasting glucose R73.01 Hypercholesterolemia E78.00 Trigger finger of right thumb M65.311 Time Spent (min) 15 Assessment & Plan Assessment & Plan (1) Elevated fasting glucose: Code(s): R73.01 - Impaired fasting glucose Category: Medical Plan: Recent fasting glucose is slightly elevated, 113. Healthy diet including low carbs encouraged. Will recheck fasting glucose. Advised to fast for 10-12 hours, may drink water, and perform blood work. Will review result and make changes as needed. Verbalized understanding and agreed with the plan. (2) Hypercholesterolemia: Code(s): E78.00 - Pure hypercholesterolemia, unspecified Category: Medical Plan: Recent total cholesterol and LDL levels are slightly elevated, 204 and 114 respectively. Triglycerides and HDL levels are normal. Advised to limit foods high in saturated fat and avoid foods high in trans fat. Routine exercise encouraged. Fast for 10-12 hours, may drink water, and perform lipid panel blood work 2-3 days before next visit. Follow-up in 3 months for hypercholesterolemia, anxiety, and depression. Return sooner with symptoms or concerns. Verbalized understanding and agreed with the plan. (3) Trigger finger of right thumb: Code(s): M65.311 - Trigger thumb, right thumb Category: Medical Plan: She reports trigger finger of the right thumb which is painful with bending back and forth. May take Tylenol ibuprofen for pain or discomfort. May wear thumb splint. X-ray ordered. Will review results and make changes as needed. Follow-up with worsening or new symptoms. May referred to Ortho. Verbalized understanding and agreed with the plan. Orders: Orders Lipid Panel 3 Months E78.00 - Pure hypercholesterolemia, unspecified Glucose Fasting Today R73.01 - Impaired fasting glucose XR hand RT 2V Today M65.311 - Trigger thumb, right thumb
== END 2025-01-04 14:39 | disposition home or self-care (01) ==
LOC: HO.HMCFM 13:29
PROVIDERS: PCP Student in an Organized Health Care Education/Training Program; Visit Provider Nurse Practitioner Family
DX: R73.01 Impaired fasting glucose (principal); E78.00 Pure hypercholesterolemia, unspecified; M65.311 Trigger thumb, right thumb

== ENCOUNTER → 2025-01-04 13:29 | Outpatient (BNVA) | payer OTHER, SELFPAY | PROVIDERS: PCP Student in an Organized Health Care Education/Training Program; Visit Provider Nurse Practitioner Family | DX: Z13.89 Encounter for screening for other disorder (principal) ==

== ENCOUNTER 2025-01-21 07:33 | Outpatient (REF) | payer OTHER, SELFPAY ==
--- OUTSIDE RECORDS SUMMARY | 2025-01-21 07:35 | XMS_ITS | Clinical Summary ---
Author Organization [facility] [address] [place] [address] [place] [phone] Phone Care Team Providers Care Buttonhole Facer Name Role Phone Kenyatta Martinez MD Primary Care Provider [phone] Medications traZODone (DESYREL) 50 mg tablet TAKE 1/2 TABLET BY MOUTH EVERY DAY AT BEDTIME 45 tablet 1 5 Active sertraline (ZOLOFT) 25 mg tablet TAKE 1 TABLET BY MOUTH EVERY DAY 90 tablet 1 5 Active traZODone (DESYREL) 50 mg tablet TAKE 1/2 TABLET BY MOUTH AT BEDTIME 45 tablet 5 01/13/20 25 Discontinued sertraline (ZOLOFT) 25 mg tablet TAKE 1 TABLET BY MOUTH EVERY DAY 90 tablet 5 01/13/20 25 Discontinued Surgical History Surgery Date Site/Laterality Comments KNEE SURGERY 2013 Left PROCEDURE: HISTORICAL KNEE SURGERY; COMMENT: meniscus surgery OTHER SURGICAL HISTORY 03/23/2018 Right PROCEDURE: [place] SALPINGO-OOPHORECTOMY COMPL/PRTL UNI/BI SPX; COMMENT: Performed by Dr. Mckeon, borderline ovarian mucinous tumor COLONOSCOPY 04/28/2018 PROCEDURE: HISTORICAL COLONOSCOPY; COMMENT: Multiple polyps, internal and external hemorrhoids, biopsy ileum, Dr. Barton OTHER SURGICAL HISTORY 05/2018 Left PROCEDURE: [place] SALPINGO-OOPHORECTOMY COMPL/PRTL UNI/BI SPX COLONOSCOPY 05/02/2021 PROCEDURE: HISTORICAL COLONOSCOPY; COMMENT: hemorrhoids, no polyps Medical History Medical History Date Comments Pure hyperglyceridemia 09/25/2006 DX:Pure h yperglyceridemia Obesity, unspecified 09/25/2006 DX:Obesity, unspecified Unspecified asthma(493.90) 09/25/2006 DX:Un specified asthma(493.90) Covid-19 03/08/2021 DX:COVID-19; COM MENT: October 2020 Family History Medical History Relation Name Comments Rheum arthritis Daughter Veronika Prostate cancer Father Stroke Maternal Grandfather Diabetes Mother htn, angioplast y, depression Other: UC Son Abhilash Breast cancer Neg Hx Relation Name Status Comments Brother Alive Daughter Veronika Alive Father Alive Maternal Grandfather Maternal Grandmother kidney Mother Alive Paternal Grandfather Paternal Grandmother Sister Alive Son Abhilash Alive Social History Tobacco Use Types Packs/Day Years Used Date Smoking Tobacco: Some Days Cigarettes Last attempted to quit: 07/01/2021 Smokeless Tobacco: Never Alcohol Use Standard Drinks/Week Comments Yes 5 (1 standard drink = 0.6 oz pur e alcohol) Comments Unknown Sex and Gender Information Value Date Recorded Sex Assigned at Not on file Legal Sex Female 2:26 PM EST Gender Identity Not on file Sexual Orientation Not on file Obstetrics History Last Filed Vital Signs Vital Sign Reading Time Taken Comments Blood Pressure 124/88 01/06/2024 11:17 AM EDT Pulse 86 01/06/2024 11:17 AM EDT Temperature - - Respiratory Rate - - Oxygen Saturation - - Inhaled Oxygen Concentration - - Weight 93.1 kg (205 lb 3.2 oz) 01/06/2024 11:17 AM EDT Height 162.6 cm (5' 4 ) 01/06/2024 11:17 AM EDT Body Mass Index 35.22 01/06/2024 11:17 AM EDT Plan of Treatment Upcoming Encounters Date Type Department Care Team (Late st Contact Info) Description 03/28/2025 8:30 AM EDT [facility] [address] [place], [place] [phone] Kenyatta Martinez MD [address] [place], [place] Health Maintenance Due Date Last Done Comments Hepatitis B Vaccines (1 of 3 - 19+ 3-dose series) 1987 Zoster Vaccines (1 of 2) 2018 Pneumococcal Vaccine: 50+ Years (2 of 2 - PCV) 12/08/2018 12/08/2017 Pneumococcal Vaccine: Pediatrics (0 to 5 Years) and At-Risk Patients (6 to 64 Years) (2 of 2 - PCV) 12/08/2018 12/08/2017 Colorectal Cancer Screening: Colonoscopy 08/10/2022 Depression Screening 08/10/2022 HIV Screening 08/10/2022 Hepatitis C Screening 08/10/2022 Social Influencers of Health Screening 08/10/2022 COVID-19 Vaccine ( - season) 2024 03/24/2021, 11/10/2020 Influenza Vaccine (Season Ended) 2025 08/11/2018 Breast Cancer Screening 10/13/2025 10/13/19, 08/22/2022, 10/10/2020, Additional history exists DTaP,Tdap,and Td Vaccines (2 - Td or Tdap) 12/09/2027 12/08/2017 Cholesterol Screening (Lipid Panel) 01/05/2029 01/06/2024 MMR Vaccines Aged Out 09/29/2019 No longer eligi ble based on patient's age to complete this topic HIB Vaccines Aged Out No longer eligi ble based on patient's age to complete this topic HPV Vaccines Aged Out No longer eligi ble based on patient's age to complete this topic Hepatitis A Vaccines Aged Out No long er eligible based on patient's age to complete this topic IPV Vaccines Aged Out No longer eligi ble based on patient's age to complete this topic Meningococcal ACWY Vaccine Aged Out N o longer eligible based on patient's age to complete this topic Meningococcal B Vaccine Aged Out No l onger eligible based on patient's age to complete this topic RSV Immunization Patients Under 20 months Aged Out No longer eligible based on patient's age to complete this topic Varicella Vaccines Aged Out No longer eligible based on patient's age to complete this topic Procedures Procedure Name Priority Date/Time Associated Diagnosis Comments SCREENING MAMMOGRAPHY BI 2-VIEW BREAST INC CAD Routine 10/13/2023 4:57 PM EST Encounter for screening mammogram for malignant neoplasm of breast from Last 3 Months or Most Recently Relevant to Health Maintenance Results * SCREENING MAMMOGRAPHY BI 2-VIEW BREAST INC CAD (10/13/2023 4:57 PM EST) Anatomical Region Laterality Modality Radiographic Lashon ging 08/22/2022 5:08 PM EST Narrative 10/15/2023 10:51 AM EST This is a summary report. The complete report is available in the patient's medical record. If you cannot access the medical record, please contact the sending organization for a detailed fax or copy. Study: SCREENING MAMMOGRAPHY BI 2-VIEW BREAST INC CAD Technique: Bilateral full-field digital screening mammography is obtained and read in conjunction with computer aided detection. ??Tomosynthesis as well as 2D C-View imaging were obtained. Comparison: Comparison made to multiple prior, most recent August 22, 2022, and most remote March 08, 2011. Breast composition: There are scattered areas of fibroglandular density. Bilateral breasts: No significant masses, suspicious calcifications or other abnormalities are seen in either breast. IMPRESSION: Impression: Bilateral breasts: Negative, no specific mammographic evidence of malignancy. ??Normal interval follow-up is recommended in 12 months. BI-RADS: Category 1: Negative Procedure Note Preeti Webb MD - 04/19/2024 This is a summary report. The complete report is available in thepatient's medical record. If you cannot access the medical record, pleasecontact the sending organization for a detailed fax or copy. Study: SCREENING MAMMOGRAPHY BI 2-VIEW BREAST INC CAD Technique: Bilateral full-field digital screening mammography is obtainedand read in conjunction with computer aided detection. Tomosynthesis aswell as 2D C-View imaging were obtained. Comparison: Comparison made to multiple prior, most recent August, and most remote March 08, 2011. Breast composition: There are scattered areas of fibroglandular density. Bilateral breasts: No significant masses, suspicious calcifications orother abnormalities are seen in either breast. IMPRESSION: Impression: Bilateral breasts: Negative, no specific mammographic evidence ofmalignancy. Normal interval follow-up is recommended in 12 months. BI-RADS: Category 1: Negative us Carley AKBAR IMG XR PROCEDURES Final Re sult from Last 3 Months or Most Recently Relevant to Health Maintenance Insurance [facility] [employer] [place] [id number] Care Teams Buttonhole Facer Relationship Specialty Start Date End Date Kenyatta Martinez MD [address] [facility] [place] [address] PCP - General Internal Medicine 01/10/25
[2025-01-21 11:55] LABS: Glucose Fasting 109 mg/dL (60-99)
== END 2025-01-21 07:34 | disposition home or self-care (01) ==
LOC: HO.WFDLDS 07:33
PROVIDERS: Visit Provider Nurse Practitioner Family
DX: R73.01 Impaired fasting glucose (principal)
CPT/HCPCS: 36415; 82947

== ENCOUNTER 2025-01-27 14:53 | Outpatient (REF) | payer OTHER, SELFPAY ==
[2025-01-27 17:52] LABS: Estimated Average Glucose 120 mg/dL; Hemoglobin A1C 133.3991 umol/L; Hemoglobin A1c % 5.8 % (<6.0); Total Hemoglobin (HGBA1C) 3323.0339 umol/L
== END 2025-01-27 14:54 | disposition home or self-care (01) ==
LOC: HO.WFDLDS 14:53
PROVIDERS: Visit Provider Nurse Practitioner Family
DX: R73.01 Impaired fasting glucose (principal)
CPT/HCPCS: 36415; 83036

== ENCOUNTER 2025-02-08 12:14 | Outpatient (AMB) | payer OTHER, SELFPAY ==
--- NOTE | 2025-02-08 12:21 | A.OFFVIS_ITS ---
Vital Signs 02/08/25 12:22 Height 5 ft 4 in Weight 211 lb BMI 36.2 BP 138/84 Blood Pressure Location Rt brachial Position Sitting Intake Visit Reasons: Follow up R weakness/frequent falls Intake Note: Patient presents for follow up MRI 07/27/24;sleep study 08/04/24;doppler US done 05/11/24 and compliance report scanned 01/13/25. No PT scheduled Allergies No Known Allergies Allergy (Verified 02/08/25 12:25) HPI Comments Details: 53y/o female comes for follow up of episodes of right hand weakness and speech problems. she had a sleep study which was c/w REM dominant sleep apnea AHI 26 O2 vernon 87%she is sleeping better with CPAP and also feels rested in the morning. SHe started on CPAP 5- - day compliance 100 % AHI 0.8 usage hrs 7 hrs MRI showed mild white matter changes. Carotid doppler normal Her right hand weakness has decreased .speech has improved Mood is stable . History from initial visit-.It started in 2008 with brief episodes of right hand weakness, slurring of speech . muffled speech etc.The episodes lasted few seconds- taking a deep breath helped.SHe was worked up for TIA MRI brain showed non specific white matter changes, carotid doppler was normal ASHANTI normal Lyme negative LDL was elevated and she was started on atorvostatin . she has h/o anxiety and was very stressed at that time. she has h/o labrynthitis and has balance issues . she had a fall when she rushed down the stairs 1 year ago.No falls since then she denies double vision. she has hand tingling and was told she had carpal tunnel. In [address] she was seen by Dr Rodríguez- he did EEG which was normal MRI showed white matter changes. she denies headaches during these episodes. she feels her espidoes have decreased- she feels her right leg drags when she is walking , she ott sword finding difficulties. Mood- is better. She is sleeping better with trazadone. she has loud snoring , Has some daytime fatigue. she started having mood issues 30 years ago when she was going through marital issues.she feels she did not deal with her parents divorce. she was seeing a psychiatrist about 20 years ago . [facility] Medical History (Updated 02/08/25 @ 12:44 by Kerline Rain MD) Obstructive sleep apnea Memory loss Arthritis Anxiety Hypersomnia Snoring Transient neurological symptoms Slurring of speech Asthma Obesity Pure hyperglyceridemia Vertigo Chondrocalcinosis Cyst of right ovary Ovarian tumor, malignant Insomnia Anxiety (~04/23/24) Surgical History Hx of appendectomy History of placement of ear tubes H/O medial meniscus repair of left knee H/O total hysterectomy Family History Sister Substance abuse Mother Depression Asthma Diabetes Social History Housing: House Alcohol intake: current Comment: 5 drinks/week Patient Tobacco Use Status: Former Tobacco user Cigarettes Per Day: 3 Years Smoked: 20 years e-Cigarette/Vaping Use: Currently Using Second Hand Smoke Exposure: Yes service: No Current occupational status: employed 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 Current occupational exposures/hazards: No Cognitive needs: No Hearing needs: No Vision needs: Yes Physical Exam Vital Signs: Last Vital Signs BP 138/84 02/08/25 12:22 BMI result Body Mass Index 36.2 Const General: cooperative, healthy appearing, comfortable and no acute distress Nutritional Appearance: obese Orientation/consciousness: patient oriented x3 Eyes Pupils: Equal, round and reactive pupils present Neck Neck: Yes no meningeal signs Neuro General: patient oriented x3, gait normal, tone normal, moves all extremities, no meningeal signs and no focal motor deficits Cranial nerves: Yes Facial sensation intact/muscles of mastication intact, Yes Equal, round and reactive pupils present, Yes Bilaterally intact EOM present, Yes Nystagmus not present, Yes Midline tongue present, Yes Symmetric palate elevation present and Yes Ability to bilaterally elevate shoulders present Cognition (Neuro): normal cognition Gait exam (Neuro): Normal gait present Motor exam (neuro): 5/5 motor strength present throughout and Normal motor muscle tone present throughout Coordination: ecscep-la-fpdl test normal Psych Appearance: grossly normal Assessment & Plan Assessment & Plan (1) Obstructive sleep apnea: Code(s): G47.33 - Obstructive sleep apnea (adult) (pediatric) Category: Medical (2) Slurring of speech: Comment: ? anxiety related Code(s): R47.81 - Slurred speech Category: Medical (3) Transient neurological symptoms: Code(s): R29.818 - Other symptoms and signs involving the nervous system Category: Medical Plan Continue CPAP 5-20 cm and compliance stressed MRI brain - reviewed will do MRI with bebeto for a more detailed eval. Carotid doppler - normal aspirin 81mg qd Orders: Orders MR head/brain w con Today R29.818 - Other symptoms and signs involving the nervous system, R93.0 - Abnormal findings on diagnostic imaging of skull and head, not elsewhere classified Coding Level of Care Code Est Pt Level 4 (43730) Complex EM visit Add On G2211 Diagnoses Obstructive sleep apnea G47.33 Slurring of speech R47.81 Transient neurological symptoms R29.818
[2025-02-08 12:22] VITALS: BP 138/84; BMI 36.2
--- OUTSIDE RECORDS SUMMARY | 2025-02-08 14:27 | XMS_ITS | Clinical Summary ---
Author Organization [facility] [address] [place] [address] [place] [phone] Phone Care Team Providers Care Underwater Welder Name Role Phone Kenyatta Martinez MD Primary Care Provider [phone] Medications traZODone (DESYREL) 50 mg tablet TAKE [...] surgery OTHER SURGICAL HISTORY 03/23/2018 Right PROCEDURE: [place] SALPINGO-OOPHORECTOMY COMPL/PRTL UNI/BI SPX; COMMENT: Performed by Dr. Mckeon, borderline ovarian mucinous tumor COLONOSCOPY 04/28/2018 PROCEDURE: HISTORICAL COLONOSCOPY; COMMENT: Multiple polyps, internal and external hemorrhoids, biopsy ileum, Dr. Barton OTHER SURGICAL HISTORY 05/2018 Left PROCEDURE: ID SALPINGO-OOPHORECTOMY COMPL/PRTL UNI/BI SPX COLONOSCOPY 05/02/2021 PROCEDURE: [...] AM EDT [facility] [address] [place], [place] [phone] Kenyatta Martinez MD [address] [place], [place] Health Maintenance Due Date Last Done [...] Most Recently Relevant to Health Maintenance Insurance [facility] [employer] [place] [id number] Care Teams Underwater Welder Relationship Specialty Start Date End Date Kenyatta Martinez MD [address] [facility] [place] [address] PCP - General Internal Medicine 01/10/25
== END 2025-02-08 12:52 | disposition home or self-care (01) ==
LOC: HO.HSMS 12:15
PROVIDERS: PCP Student in an Organized Health Care Education/Training Program; Visit Provider Psychiatry & Neurology Neurology
DX: G47.33 Obstructive sleep apnea (adult) (pediatric) (principal); R47.81 Slurred speech; R29.818 Other symptoms and signs involving the nervous system
CPT/HCPCS: 99214

== ENCOUNTER → 2025-02-08 12:14 | Outpatient (BNVA) | payer OTHER, SELFPAY | PROVIDERS: PCP Student in an Organized Health Care Education/Training Program; Visit Provider Psychiatry & Neurology Neurology ==

== ENCOUNTER 2025-02-17 15:32 | Outpatient (REF) | payer OTHER, SELFPAY ==
--- NOTE | ~2025-02-17 | MM_ITS ---
EXAMINATION: MM SCREENING DIGITAL BREAST TOMOSYNTHESIS, BILATERAL CLINICAL INFORMATION: Screening. Asymptomatic. COMPARISON: Mammography: Comparison is made with available priors TECHNIQUE: Digital breast mammography with tomosynthesis is performed in both the craniocaudal and mediolateral oblique views along with computer-aided detection (CAD). FINDINGS: There are scattered areas of fibroglandular density (ACR BI-RADS breast composition Category b). There are no significant masses, abnormal calcifications, or other abnormalities. MM/MM tomosynthesis screening BI IMPRESSION: No mammographic evidence of malignancy. ASSESSMENT: BI-RADS BI-RADS 1 - Negative RECOMMENDATION: Routine annual mammography screening. 1 year F/U This examination should not preclude the clinical evaluation of a suspicious palpable abnormality. This patient's information was entered into a reminder system with a target due date for their next mammogram. Electronically signed by: Sofi Peña DO 02/23/2025 03:07 PM EDT
--- OUTSIDE RECORDS SUMMARY | 2025-02-17 16:43 | XMS_ITS | Clinical Summary ---
Author Organization [address] Address [address] [place] [phone] Phone Care Team Providers Care Tape Editor Name Role Phone Kenyatta Martinez MD Primary Care Provider [phone] Medications traZODone (DESYREL) 50 mg tablet TAKE 1/2 TABLET BY MOUTH EVERY DAY AT BEDTIME 45 tablet 1 01/12/2025 Active sertraline (ZOLOFT) 25 mg tablet TAKE 1 TABLET BY MOUTH EVERY DAY 90 tablet 1 01/12/2025 Active Surgical History Surgery Date Site/Laterality Comments KNEE SURGERY 2013 Left PROCEDURE: HISTORICAL KNEE SURGERY; COMMENT: meniscus surgery OTHER SURGICAL HISTORY 03/23/2018 Right PROCEDURE: [place] SALPINGO-OOPHORECTOMY COMPL/PRTL UNI/BI SPX; COMMENT: Performed by Dr. Mckeon, borderline ovarian mucinous tumor COLONOSCOPY 04/28/2018 PROCEDURE: HISTORICAL COLONOSCOPY; COMMENT: Multiple polyps, internal and external hemorrhoids, biopsy ileum, Dr. Barton OTHER SURGICAL HISTORY 05/2018 Left PROCEDURE: [place] SALPINGO-OOPHORECTOMY COMPL/PRTL UNI/BI SPX COLONOSCOPY 05/02/2021 PROCEDURE: [...] AM EDT [facility] [address] [place], [place] [phone] Kenyatta Martinez MD [address] [place] [address] Health Maintenance Due Date Last Done Comments [...] in conjunction with computer aided detection. Tomosynthesis as well as 2D C-View imaging were obtained. Comparison: Comparison made to multiple prior, most recent August 22, 2022, and most remote March 08, 2011. Breast composition: There are scattered areas of fibroglandular density. Bilateral breasts: No significant masses, suspicious calcifications or other abnormalities are seen in either breast. IMPRESSION: Impression: Bilateral breasts: Negative, no specific mammographic evidence of malignancy. Normal interval follow-up is recommended in 12 [...] Most Recently Relevant to Health Maintenance Insurance [facility] Care Teams Tape Editor Relationship Specialty Start Date End Date Kenyatta Martinez MD [address] [facility] [phone] PCP - General Internal Medicine 01/10/25
== END 2025-02-17 15:33 | disposition home or self-care (01) ==
LOC: HO.MAMMO 15:32
PROVIDERS: PCP Nurse Practitioner Family; Visit Provider Student in an Organized Health Care Education/Training Program
DX: Z12.31 Encounter for screening mammogram for malignant neoplasm of breast (principal)
CPT/HCPCS: 77063; 77067

== ENCOUNTER → 2025-02-17 16:30 | Outpatient (BNV) | payer OTHER, SELFPAY | PROVIDERS: PCP Nurse Practitioner Family; Visit Provider Internal Medicine | DX: Z12.31 Encounter for screening mammogram for malignant neoplasm of breast (principal) | CPT/HCPCS: 77063; 77067 ==

== ENCOUNTER 2025-03-09 15:44 | Outpatient (REF) | payer OTHER, SELFPAY ==
--- NOTE | ~2025-03-09 | MR_ITS ---
EXAMINATION: MR BRAIN WITHOUT AND WITH CONTRAST CLINICAL INFORMATION: Right-sided weakness. COMPARISON: July 27, 2024. TECHNIQUE: Multiplanar, multisequence MRI of the brain was obtained before and after the intravenous administration of 10.0 mL (Gadavist) without reported immediate complications.. FINDINGS: Patient's motion artifact and Bilateral, scattered, perpendicularly oriented to corpus callosum ovoid shaped nonenhancing no restricted diffusion the periventricular white matter hyperintense T2 FLAIR signal abnormality involving mostly supratentorial compartment. There is a questionable focal punctate 4 mm hyperintense T2 nonenhancing signal in the right brachial pontis. No restricted diffusion. No acute intracranial hemorrhage, mass effect, midline shift, hydrocephalus or herniation. Prominence of the extra-axial CSF spaces cerebral sulci, mild. Flow-void signal within the main cerebral vessels is normal. Sellar/suprasellar region demonstrated no signal abnormality or masses. Craniocervical junction demonstrates normal position of the cerebellar tonsils. No gross abnormal enhancement within the intra-axial or the extra-axial compartment of the cranium.. MR/MR head/brain wo/w con IMPRESSION: Concerning nonenhancing demyelinating plaques with similar morphology and distribution pattern since prior examination. Electronically signed by: Prasanna Spencer MD 03/10/2025 07:36 AM EDT
--- OUTSIDE RECORDS SUMMARY | 2025-03-09 15:50 | XMS_ITS | Clinical Summary ---
Author Organization [address] Address [address] [place] [phone] Phone Care Team Providers Care Leasing Professional Name Role Phone Kenyatta Martinez MD Primary Care Provider [phone] Medications traZODone (DESYREL) 50 mg tablet TAKE 1/2 TABLET BY MOUTH EVERY DAY AT BEDTIME 45 tablet 1 01/12/2025 Active sertraline (ZOLOFT) 25 mg tablet TAKE 1 TABLET BY MOUTH EVERY DAY 90 tablet 1 01/12/2025 Active Surgical History Surgery Date Site/Laterality Comments KNEE SURGERY 2013 Left PROCEDURE: HISTORICAL KNEE SURGERY; COMMENT: meniscus surgery OTHER SURGICAL HISTORY 03/23/2018 Right PROCEDURE: AL SALPINGO-OOPHORECTOMY COMPL/PRTL UNI/BI SPX; COMMENT: Performed by Dr. Mckeon, borderline ovarian mucinous tumor COLONOSCOPY 04/28/2018 PROCEDURE: HISTORICAL COLONOSCOPY; COMMENT: Multiple polyps, internal and external hemorrhoids, biopsy ileum, Dr. Barton OTHER SURGICAL HISTORY 05/2018 Left PROCEDURE: AL SALPINGO-OOPHORECTOMY COMPL/PRTL UNI/BI SPX COLONOSCOPY 05/02/2021 PROCEDURE: [...] AM EDT [facility] [address] [place], [place] [phone] Kenyatta Martinez MD [address] [place] [address] Health Maintenance Due Date Last Done Comments Hepatitis B Vaccines (1 of 3 - 19+ 3-dose series) 1987 Zoster Vaccines (1 of 2) 2018 Pneumococcal Vaccine: 50+ Years (2 of 2 - PCV) 12/08/2018 12/08/2017 Pneumococcal Vaccine: Pediatrics (0 to 5 Years) and At-Risk Patients (6 to 49 Years) (2 of 2 - PCV) 12/08/2018 12/08/2017 Colorectal Cancer Screening: Colonoscopy 08/10/2022 Depression Screening 08/10/2022 HIV Screening 08/10/2022 Hepatitis C Screening 08/10/2022 Social Influencers of Health Screening 08/10/2022 COVID-19 Vaccine (3 - season) 2024 03/24/2021, 11/10/2020 Influenza Vaccine (#1) 2025 08/11/2018 Breast Cancer Screening 10/13/2025 10/13/19, [...] Most Recently Relevant to Health Maintenance Insurance [facility] [place] [address] Care Teams Leasing Professional Relationship Specialty Start Date End Date Kenyatta Martinez MD [address] [place] [place] [address] PCP - General Internal Medicine 01/10/25
== END 2025-03-09 15:45 | disposition home or self-care (01) ==
LOC: HO.MRI 15:44
PROVIDERS: PCP Nurse Practitioner Family; Visit Provider Psychiatry & Neurology Neurology
DX: R29.818 Other symptoms and signs involving the nervous system (principal); R47.81 Slurred speech; R93.0 Abnormal findings on diagnostic imaging of skull and head, not elsewhere classified
CPT/HCPCS: 70553; A9585

== ENCOUNTER → 2025-03-09 15:52 | Outpatient (BNV) | payer OTHER, SELFPAY | PROVIDERS: PCP Nurse Practitioner Family; Visit Provider Radiology Diagnostic Radiology | DX: R53.1 Weakness (principal) | CPT/HCPCS: 70553 ==

== ENCOUNTER 2025-04-19 10:00 | Outpatient (REF) | payer OTHER, SELFPAY ==
--- OUTSIDE RECORDS SUMMARY | 2024-05-31 15:15 | XMS_ITS | Encounter Summary ---
Author Organization [facility] Address [address] [facility] [address] [place] [phone] Phone Care Team Providers Care Showroom Consultant Name Role Phone Pcp, Unknown Primary Care Provider Unavailabl e Encounter Details Date Type Department Care Team (Late st Contact Info) Description 05/31/2024 3:15 PM EDT Hospital Encounter [facility] [address] [place] [phone] Pallavi Miller PA-C [address] [facility], [address] [place] [address] [email or web address] Social History Tobacco Use Types Packs/Day Years [...] clinician's provided indication for this examination in [facility]: Cough; Dyspnea (Shortness of Breath) COMPARISON: [...] on filedocumented in this encounter Care Teams Showroom Consultant Relationship Specialty Start Date End Date Pcp, Unknown PCP - General 04/15/23 03/09/25 documented as of this encounter Additional Source Comments The information contained in this document represents components of the legal health record. It is not the complete legal health record.[facility]
--- OUTSIDE RECORDS SUMMARY | 2025-04-19 11:11 | XMS_ITS ---
Author Name [facility] Organization Unknown Care Team Organization Name Specialty Phone Email Start Date End Da te [facility] Steph [facility] 07/09/2022 4
[2025-04-19 11:45] LABS: Cholesterol 219 mg/dL (<200); HDL Cholesterol 69 mg/dL (>40); Triglycerides 104 mg/dL (<150)
== END 2025-04-19 10:01 | disposition home or self-care (01) ==
LOC: HO.WFDLDS 10:00
PROVIDERS: Visit Provider Nurse Practitioner Family
DX: Z00.00 Encounter for general adult medical examination without abnormal findings (principal); E78.00 Pure hypercholesterolemia, unspecified
CPT/HCPCS: 36415; 80061

== ENCOUNTER 2025-04-22 15:02 | Outpatient (AMB) | payer OTHER, SELFPAY ==
--- OUTSIDE RECORDS SUMMARY | 2024-05-31 15:15 | XMS_ITS | Encounter Summary ---
Author Organization [facility] Address [address] [facility] [address] [place] [phone] Phone Care Team Providers Care Art Editor Name Role Phone Pcp, Unknown Primary Care Provider Unavailabl e Encounter Details Date Type Department Care Team (Late st Contact Info) Description 05/31/2024 3:15 PM EDT Hospital Encounter [facility] [address] [place] [phone] Pallavi Miller PA-C [address] [facility], [address] [place] [address] [email or web address] Social History Tobacco Use Types Packs/Day Years [...] clinician's provided indication for this examination in [facility]: Cough; Dyspnea (Shortness of Breath) COMPARISON: [...] on filedocumented in this encounter Care Teams Art Editor Relationship Specialty Start Date End Date Pcp, Unknown PCP - General 04/15/23 03/09/25 documented as of this encounter Additional Source Comments The information contained in this document represents components of the legal health record. It is not the complete legal health record.[facility]
--- NOTE | 2025-04-22 15:04 | A.OFFPC_ITS ---
Vital Signs 04/22/25 15:09 Height 5 ft 4 in Weight 213 lb 4 oz BMI 36.6 BP 132/60 Blood Pressure Location Rt brachial Position Sitting Respiration 16 Pulse 60 Pulse Source Pulse Oximeter Temp 98.5 F Temp Source Oral Pulse Oximetry (%) 97 Oxygen Delivery Method Room Air Intake Visit Reasons: 3 mos hypercholesterolemia, anxiety, depression Intake Note: patient here for 3 month follow up on hypercholesterolemia, anxiety and depression Billiard Parlor Manager Required: No Is last menstrual period known: No Post menopausal: No Patient : No Allergies No Known Allergies Allergy (Verified 04/22/25 15:19) Medication List - Last Reconciled 04/22/25 by Linda Amaya CNP albuterol sulfate 90 mcg/actuation 2 puffs inhalation Q4-6H PRN magnesium chloride mg PO omega-3 fatty acids 500 mg PO DAILY sertraline 25 mg PO DAILY 30 days trazodone 50 mg PO DAILY vitamin B comp and C no.3 (B Complex Plus Vitamin C) 1 cap PO DAILY Tobacco use date assessed: 04/22/25 Dental Screening Dental Screen Date: 04/22/25 Did you have a dental visit in the last 12 months?: Yes Did you have a dental problem in the last 6 months where you did not have access to dental care?: No Was dental information given to patient?: Patient has dentist HPI HPI Comments History of Present Illness Details 54-year-old female presents for anxiety, depression, and review of recent lab results. She admits to taking her medications as prescribed without adverse reactions. She admits to making healthy lifestyle changes. She recently returned from vacation. She offers no complaints and denies acute symptoms at this time. [facility] Medical History (Updated 04/22/25 @ 15:14 by Linda Amaya CNP) Obstructive sleep apnea Memory loss Arthritis Anxiety Hypersomnia Snoring Transient neurological symptoms Slurring of speech Asthma Obesity Pure hyperglyceridemia Vertigo Chondrocalcinosis Cyst of right ovary Ovarian tumor, malignant Insomnia Anxiety (~04/23/24) Surgical History Hx of appendectomy History of placement of ear tubes H/O medial meniscus repair of left knee H/O total hysterectomy Family History Sister Substance abuse Mother Depression Asthma Diabetes Social History Housing: House Alcohol intake: current Comment: 5 drinks/week Patient Tobacco Use Status: Former Tobacco user Cigarettes Per Day: 3 Years Smoked: 20 years e-Cigarette/Vaping Use: Currently Using Second Hand Smoke Exposure: Yes service: No Current occupational status: employed 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 1. Little interest or pleasure in doing things: several days 2. Feeling down, depressed, or hopeless: not at all 3. Trouble falling or staying asleep, or sleeping too much: not at all 4. Feeling tired or having little energy: more than half the days 5. Poor appetite or overeating: more than half the days 6. Feeling bad about yourself - or that you are a failure or have let yourself or your family down: not at all 7. Trouble concentrating on things, such as reading the newspaper or watching television: several days 8. Moving or speaking so slowly that other people could have noticed. Or the opposite - being so fidgety or restless that you have been moving around a lot more than usual: not at all 9. Thoughts that you would be better off or of hurting yourself in some way: not at all Total score: 6 Depression Screening Interpretation: Positive Depression Screening Follow-up: Existing condition and In treatment Depression Screening Done: Yes 14586 - PHQ-9 Billing: Yes Source: Developed by Drs. Marcel Little, Laquita Guerra, Gasper Razo and colleagues, with an educational angela from [facility]. Thrive Questionnaire Date Thrive assessed: 12/08/24 I am a: Patient What is your living situation today?: I have a steady place to live Within the past 12 months, did the food you bought not last and you didn't have the money to get more?: Never true Within the past 12 months, did you worry whether your food would run out before you got money to buy more?: Never true Do you have trouble paying for medicines?: No Do you have trouble getting transportation to medical appointments?: No Do you have trouble paying your heating and electricity bill?: No Do you have trouble taking care of your child, family member or friend?: No Do you have trouble with day-to-day activities such as bathing, preparing meals, shopping, managing finances, etc.?: No Are you currently unemployed and looking for a job?: No Are you interested in more education?: No Please select the resources that you would like help with: None Currently or been in a relationship where the following occur: No concerns reported THRIVE Score: 0 VJ-7 AMB Questionnaire VJ-7 Date VJ - 7 assessed: 04/22/25 Feeling nervous, anxious, or on edge: 0 = Not at all Not being able to stop or control worryin = Not at all Worrying too much about different things: 0 = Not at all Trouble relaxin = Not at all Being so restless that it is hard to sit still: 1 = Several days Becoming easily annoyed or irritable: 1 = Several days Feeling afraid as if something awful might happen: 0 = Not at all Total VJ-7 score (0-4 normal; 5-9 mild; 10-14 moderate; 15-21 severe): 2 Source: Developed by Drs. Marcel Little, Laquita Guerra, Gasper Razo and colleagues, with an educational angela from [facility]. VJ-7 Assessment Billing VJ-7 Assessment Tool: VJ-7 Assessment 76645 Review of Systems Const Details: Const Denies chills, Denies fatigue, Denies fever(s), Denies headache(s) and Denies weakness ENT Denies dizziness and Denies headache(s) Card Denies chest pain, Denies lightheadedness, Denies dyspnea and Denies other (Palpitations) Resp Denies cough, Denies dyspnea, Denies wheezing and Denies other ( shortness of breath) GI Denies abdominal pain, Denies melena, Denies hematochezia, Denies change in bowel habits, Denies dyspepsia and Denies nausea Denies hematuria and Denies dysuria Musc Denies abnormal gait, Denies myalgias, Denies arthralgias, Denies numbness and Denies tingling Skin/Breast Denies rash, Denies unusual bruising and Denies wounds Neuro Denies abnormal gait, Denies dizziness, Denies headache(s), Denies memory loss, Denies numbness, Denies Sensory deficit (Neuro), Denies tingling and Denies weakness Psych Denies anxiety, Denies depression, Denies memory loss Endo Denies cold intolerance, Denies fatigue, Denies heat intolerance, Denies polydipsia and Denies polyuria Aller/Immun Denies wheezing Physical exam (Primary Care) Tobacco/Smoking Status: Tobacco use Status Tobacco use date assessed 04/22/25 04/22/25 15:09 Patient Tobacco Use Status Former Tobacco user 04/22/25 15:07 e-Cigarette/Vaping Use Currently Using 04/22/25 15:07 Depression Screening Interpretation: Positive Depression Screening Follow-up: Existing condition and In treatment Thrive Assessment: Date of Thrive Assessment Date Thrive assessed 12/08/24 04/22/25 15:07 Currently or been in a relationship where the following occur: No concerns reported Const Other: General: no acute distress and well developed Nutritional Appearance: well nourished Orientation/consciousness: patient oriented x3 HENMT Head: Yes normocephalic and Yes atraumatic Eyes General: appearance normal, both eyes and all related structures Pupils: Equal, round and reactive pupils present EOM: EOMs intact bilaterally Resp Effort & Inspection: normal respiratory effort Auscultation: clear to auscultation bilaterally Cardio Rate: regular rate Rhythm: regular rhythm Heart sounds: S1 normal heart sound present, S2 normal heart sound present, no gallops, no murmurs and no rubs GI Palpation (GI): No Abdominal aortic bruit present, Soft to palpation, nontender, No hepatosplenomegaly present and No Rebound tenderness present Auscultation: normal bowel sounds General: Yes no CVA tenderness Back/Spine/Pelvis Back: no CVA tenderness Cervical Spine: cervical ROM normal and No Cervical spine tenderness Thoracic/Lumbar Spine: thoraco-lumbar ROM normal, No pain with thoraco-lumbar ROM, No thoracic spinal tenderness and No lumbar spinal tenderness Extrem General: Yes normal to inspection, No edema and No calf tenderness Skin General: warm and dry. Normal skin color. Normal skin turgor Neuro General: patient oriented x3, gait normal and no focal neuro deficit Cranial nerves: Yes Equal, round and reactive pupils present Cognition (Neuro): normal cognition Gait exam (Neuro): Normal gait present Sensory Exam: No Sensory deficit (Neuro) Psych Appearance: grossly normal Affect: normal affect Attitude: cooperative Thought process: Normal thought process present Coding Level of Care Code Est Pt Level 3 (32108) Diagnoses Hypercholesterolemia E78.00 Prediabetes R73.03 Seasonal depression F33.8 Anxiety F41.9 Additional Codes VJ-7 Assessment Billing - VJ-7 Assessment Tool: VJ-7 Assessment 25124 ([id number]) PHQ-9 - 74125 - PHQ-9 Billing: Yes ([id number]) Assessment & Plan Assessment & Plan (1) Hypercholesterolemia: Code(s): E78.00 - Pure hypercholesterolemia, unspecified Category: Medical Plan: Recent total cholesterol and LDL levels are elevated, 219 and 130 respectively. Triglycerides and HDL levels are normal. Previous total cholesterol and LDL levels are 204 and 114 respectively. Advised to limit foods high in saturated fat and avoid foods high in trans fat. Routine exercise encouraged. Fast for 10-12 hours, may drink water, and perform lipid panel blood work a few days before next visit. Follow-up in 3 months or sooner with symptoms or concerns. Verbalized understanding and agreed with the plan. (2) Prediabetes: Code(s): R73.03 - Prediabetes Category: Medical Plan: Recent A1c is 5.8%. Routine exercise and healthy diet, including low carbs encouraged. Will recheck A1c in 3 months. Verbalized understanding and agreed with the plan. (3) Seasonal depression: Code(s): F33.8 - Other recurrent depressive disorders Category: Medical Plan: Continue current treatment regimen. PHQ-9 score revealed mild depression. VJ-7 score is normal. Continue current treatment regimen. Routine exercise encouraged. Follow-up in 3 months or sooner with symptoms or concerns. Verbalized understanding and agreed with the plan. (4) Anxiety: Code(s): F41.9 - Anxiety disorder, unspecified Category: Medical Plan: Plan as above. Orders: Orders Lipid Panel 3 Months E78.00 - Pure hypercholesterolemia, unspecified Hemoglobin A1c 3 Months R73.03 - Prediabetes
[2025-04-22 15:09] VITALS: BP 132/60; PULSE 60; RESP 16; TEMP 36.9; O2SAT 97; BMI 36.6
== END 2025-04-22 15:30 | disposition home or self-care (01) ==
LOC: HO.HMCFM 15:03
PROVIDERS: PCP Nurse Practitioner Family; Visit Provider Nurse Practitioner Family
DX: E78.00 Pure hypercholesterolemia, unspecified (principal); R73.03 Prediabetes; F33.8 Other recurrent depressive disorders; F41.9 Anxiety disorder, unspecified

== ENCOUNTER → 2025-04-22 15:02 | Outpatient (BNVA) | payer OTHER, SELFPAY | PROVIDERS: PCP Nurse Practitioner Family; Visit Provider Nurse Practitioner Family | DX: R73.03 Prediabetes (principal); E78.00 Pure hypercholesterolemia, unspecified; F41.9 Anxiety disorder, unspecified; F33.8 Other recurrent depressive disorders | CPT/HCPCS: 96127 ==

== ENCOUNTER 2025-07-22 07:33 | Outpatient (REF) | payer OTHER, SELFPAY ==
--- OUTSIDE RECORDS SUMMARY | 2024-05-31 14:15 | XMS_ITS | Encounter Summary ---
Author Organization [facility] Address [address] [facility] [address] [place] [phone] Phone Care Team Providers Care Pullman Conductor Name Role Phone Pcp, Unknown Primary Care Provider Unavailabl e Encounter Details Date Type Department Care Team (Late st Contact Info) Description 05/31/2024 3:15 PM EDT Hospital Encounter [facility] [address] [place] [phone] Pallavi Miller PA-C [address] [facility], [address] [place] [address] Social History Tobacco Use Types Packs/Day Years [...] clinician's provided indication for this examination in [facility]: Cough; Dyspnea (Shortness of Breath) COMPARISON: [...] on filedocumented in this encounter Care Teams Pullman Conductor Relationship Specialty Start Date End Date Pcp, Unknown PCP - General 04/15/23 03/09/25 documented as of this encounter Additional Source Comments The information contained in this document represents components of the legal health record. It is not the complete legal health record.[facility]
--- OUTSIDE RECORDS SUMMARY | 2025-03-10 12:21 | XMS_ITS | Encounter Summary ---
Author Organization [facility] Address [address] [place] [phone] Phone Care Team Providers Care Lands Resource Manager Name Role Phone Pcp, Unknown Primary Care Provider Unavailabl e Encounter Details Date Type Department Care Team (Late st Contact Info) Description 03/10/2025 1:21 PM EDT Hospital Encounter [facility] [address] [place] [phone] Caroline Chawla CNP [address] [place] [address] [email or web address] Social History Tobacco Use Types Packs/Day Years [...] clinician's provided indication for this examination in [facility]: Pain; no trauma, mild swelling over [...] and lateral compartments.Moderate joint effusion. Caroline Chawla CREDIT RISK SPECIALIST IMG XR LOWER EXTREMITY Patricia l Result documented in this encounter Visit Diagnoses Not on filedocumented in this encounter Care Teams Lands Resource Manager Relationship Specialty Start Date End Date Pcp, Unknown PCP - General 03/10/25 documented as of this encounter Additional Source Comments The information contained in this document represents components of the legal health record. It is not the complete legal health record.[facility]
--- OUTSIDE RECORDS SUMMARY | 2025-07-22 07:36 | XMS_ITS | Clinical Summary ---
Author Organization [facility] Address [address] [place] [phone] Phone Care Team Providers Care Bleach Liquor Maker Name Role Phone Pcp, Unknown Primary Care Provider Unavailabl e Allergies No known active allergies Medications traZODone (DESYREL) 50 MG tablet TAKE HALF TO 1 TAB BY MOUTH NEEDED FOR SLEEP. 3 Active cholecalciferol (VITAMIN D3) 25 MCG (1,000 unit) tablet Take 1,000 Units by mouth daily. Active inhaler spacing device (AEROCHAMBER,BR EATHERITE) Spcr Inhale 1 each into the lungs every 4 (four) hours as needed. 1 each 4 Active albuterol 90 mcg/actuation inhaler Inhale 2 puffs into the lungs every 4 (four) hours as needed for wheezing or shortness of breath/dyspnea. 8 g 4 Active albuterol 2.5 mg /3 mL (0.083 %) nebulizer solution Take 3 mL (2.5 mg total) by nebulization nightly at bedtime as needed for wheezing or shortness of breath/dyspnea. 3 mL 4 Active sertraline (ZOLOFT) 25 MG tablet Take 25 mg by mouth daily. 5 Active aspirin 81 MG EC tablet Take 81 mg by mouth daily. Active Active Problems No known active problems Immunizations Immunization Administration Dates Next Due Influenza Quadrivalent MDCK Preservative Free IM 07/10/2019,08/11/2018 MMR 09/29/2019 Pneumococcal polysaccharide PPSV23 12/08/2017 Tdap 12/08/2017 Social History Tobacco Use Types Packs/Day Years Used Date Smoking Tobacco: Former Cigarettes Smokeless Tobacco: Current Tobacco Cessation:Ready to Q uit: Not Asked; Counseling Given: Not Answered Education Answer Date Recorded Are you interested [...] on file Sexual Orientation Not on file Last Filed Vital Signs Vital Sign Reading Time Taken Comments Blood Pressure 144/80 03/10/2025 12:55 PM EDT Pulse 64 03/10/2025 12:55 PM EDT Temperature 36.7 C (98 F) 03/10/2025 12:55 PM EDT Respiratory Rate 16 03/10/2025 12:55 PM EDT Oxygen Saturation 97% 03/10/2025 12:55 PM EDT Inhaled Oxygen Concentration - - Weight 94.8 kg (209 lb) 03/10/2025 12:55 PM EDT Height 162.6 cm (5' 4 ) 03/10/2025 12:55 PM EDT Body Mass Index 35.87 03/10/2025 12:55 PM EDT Plan of Treatment Health Maintenance Due Date Last Done Comments LIPID PANEL 1968 DEPRESSION SCREENING 1980 SMOKING Hx and SMOKELESS TOBACCO SCREENING 1981 HEPATITIS C SCREENING 1986 HIV ONE-TIME SCREENING (18-6 5 YEARS) 1986 SCREENING FOR DIABETES 2003 MAMMOGRAM 2008 COLOGUARD 2013 COLONOSCOPY 2013 COLORECTAL CANCER SCREENING 2013 FIT TEST 2013 FOBT 2013 SIGMOIDOSCOPY 2013 VIRTUAL COLONOSCOPY 2013 ZOSTER VACCINES (1 of 2) 2018 PNEUMOCOCCAL VACCINES (50+ years) (2 of 2 - PCV) 12/08/2018 12/08/2017 INFLUENZA VACCINE (#1) 2025 9, 08/11/2018 COVID-19 VACCINE (3 - 2024-2 6 season) 2025 03/24/2021, 11/10/2020 Adult Td,Tdap Booster 12/14/2034 12/14/2024 , 12/08/2017 RSV VACCINE (1 - 1-dose 75+ series) 2043 HEPATITIS A VACCINES Aged Out No long er eligible based on patient's age to complete this topic HIB VACCINES Aged Out No longer eligi ble based on patient's age to complete this topic MENINGOCOCCAL VACCINES (ACWY) Aged Out No longer eligible based on patient's age to complete this topic MENINGOCOCCAL VACCINES (B) Aged Out N o longer eligible based on patient's age to complete this topic Medical Devices Not on file Insurance [place] Member Subscriber Plan / Payer (Ef fective 2018-Present) Name:Minerva Fisher Relation to Subscriber:Spouse Name:LEANDER FISHER Date of :1969 (Home) Address: [address] [place] [address] Payer ID:[id number] (NAIC) Type:PPO Address: [address] [place] Care Teams Bleach Liquor Maker Relationship Specialty Start Date End Date Pcp, Unknown PCP - General 03/10/25 Additional Source Comments The information contained in this document represents components of the legal health record. It is not the complete legal health record.[facility]
[2025-07-22 12:11] LABS: Cholesterol 197 mg/dL (<200); HDL Cholesterol 65 mg/dL (>40); Triglycerides 72 mg/dL (<150)
== END 2025-07-22 07:34 | disposition home or self-care (01) ==
LOC: HO.WFDLDS 07:33
PROVIDERS: Visit Provider Nurse Practitioner Family
DX: R73.03 Prediabetes (principal); E78.00 Pure hypercholesterolemia, unspecified
CPT/HCPCS: 36415; 80061; 83036

== ENCOUNTER 2025-07-26 08:19 | Outpatient (AMB) | payer OTHER, SELFPAY ==
--- OUTSIDE RECORDS SUMMARY | 2024-05-31 14:15 | XMS_ITS | Encounter Summary ---
Author Organization [facility] Address [address] [facility] [address] [place] [phone] Phone Care Team Providers Care Building Wrecker Name Role Phone Pcp, Unknown Primary Care Provider Unavailabl e Encounter Details Date Type Department Care Team (Late st Contact Info) Description 05/31/2024 3:15 PM EDT Hospital Encounter [facility] [address] [place] [phone] Pallavi Miller PA-C [address] [facility], [address] [place] [address] Social History Tobacco Use Types Packs/Day Years Used Date Smoking Tobacco: Former Cigarettes Smokeless Tobacco: Current Education Answer Date Recorded Are you interested in more education? Not on edil e 04/15/2023 Are you concerned about learning? Not on file 04/15/2023 No 04/15/2023 No 04/15/2023 Digital Access Answer Date Recorded No 04/15/2023 No 04/15/2023 Reliable internet access at home? Not on file 04/15/2023 Device with a working camera? Not on file Comments No Sex and Gender Information Value Date Recorded Sex Assigned at Not on file Legal Sex Female 2:53 PM EST Gender Identity Not on file Sexual Orientation Not on file documented as of this encounter Plan of Treatment Not on file documented as of this encounter Procedures Procedure Name Priority Date/Time Associated Diagnosis Comments XR CHEST PA AND LATERAL 2 VIEWS Urgent/patient waiting 05/31/2024 3:18 PM EDT Pneumonia of left lower lobe due to infectious organism documented in this encounter Results * XR CHEST PA AND LATERAL 2 VIEWS (05/31/2024 3:18 PM EDT) Anatomical Region Laterality Modality Chest Computed Radiogr aphy 05/31/2024 3:57 PM EDT Impressions 05/31/2024 3:58 PM EDT No pneumonia or acute cardiopulmonary process. Narrative 05/31/2024 3:58 PM EDT XR CHEST PA AND LATERAL 2 VIEWS Referring clinician's provided indication for this examination in [facility]: Cough; Dyspnea (Shortness of Breath) COMPARISON: None. FINDINGS: Devices/Tubes/Lines: None. Lungs: No focal consolidation or pulmonary edema. Pleura: No pleural effusion or pneumothorax. Heart/Mediastinum: Normal cardiac silhouette. Normal mediastinal contours. Bones/Soft Tissues: No acute osseous abnormality. S-shaped scoliosis of the thoracolumbar spine with mild multilevel degenerative changes. Procedure Note Desean Goff MD - 05/31/2024 XR CHEST PA AND LATERAL 2 VIEWS Referring clinician's provided indication for this examination in Epic:Cough; Dyspnea (Shortness of Breath) COMPARISON: None. FINDINGS: Devices/Tubes/Lines: None. Lungs: No focal consolidation or pulmonary edema. Pleura: No pleural effusion or pneumothorax. Heart/Mediastinum: Normal cardiac silhouette. Normal mediastinalcontours. Bones/Soft Tissues: No acute osseous abnormality. S-shaped scoliosis ofthe thoracolumbar spine with mild multilevel degenerative changes. IMPRESSION: No pneumonia or acute cardiopulmonary process. Pallavi Miller PA-C IMG XR CHEST Patricia l Result documented in this encounter Visit Diagnoses Not on filedocumented in this encounter Care Teams Building Wrecker Relationship Specialty Start Date End Date Pcp, Unknown PCP - General 04/15/23 03/09/25 documented as of this encounter Additional Source Comments The information contained in this document represents components of the legal health record. It is not the complete legal health record.[facility]
--- OUTSIDE RECORDS SUMMARY | 2025-03-10 12:21 | XMS_ITS | Encounter Summary ---
Author Organization [facility] Address [address] [place] [phone] Phone Care Team Providers Care Road Traffic Controller Name Role Phone Pcp, Unknown Primary Care Provider Unavailabl e Encounter Details Date Type Department Care Team (Late st Contact Info) Description 03/10/2025 1:21 PM EDT Hospital Encounter [facility] [address] [place] [phone] Caroline Chawla CNP [address] [place] [address] Social History Tobacco Use Types Packs/Day Years [...] Name Priority Date/Time Associated Diagnosis Comments XR KNEE 4 OR MORE VIEWS (LEFT) Urgent/patient waiting 03/10/2025 1:27 PM EDT Left anterior knee pain documented in this encounter Results * XR KNEE 4 OR MORE VIEWS (LEFT) (03/10/2025 1:27 PM EDT) Anatomical Region Laterality Modality Knee Left Computed Radiogr aphy 03/10/2025 1:39 PM EDT Impressions 03/10/2025 1:40 PM EDT No acute fracture or dislocation. Mild tricompartmental degenerative changes. Chondrocalcinosis in the medial and lateral compartments. Moderate joint effusion. Narrative 03/10/2025 1:40 PM EDT XR KNEE 4 OR MORE VIEWS (LEFT) Referring clinician's provided indication for this examination in [facility]: Pain; no trauma, mild swelling over superior aspect patella COMPARISON: None. Procedure Note Desean Goff MD - 03/10/2025 XR KNEE 4 OR MORE VIEWS (LEFT) Referring clinician's provided indication for this examination in Epic:Pain; no trauma, mild swelling over superior aspect patella COMPARISON: None. IMPRESSION: No acute fracture or dislocation. Mild tricompartmental degenerativechanges. Chondrocalcinosis in the medial and lateral compartments.Moderate joint effusion. Caroline Chawla CUSTOMS VERIFIER IMG XR LOWER EXTREMITY Patricia l Result documented in this encounter Visit Diagnoses Not on filedocumented in this encounter Care Teams Road Traffic Controller Relationship Specialty Start Date End Date Pcp, Unknown PCP - General 03/10/25 documented as of this encounter Additional Source Comments The information contained in this document represents components of the legal health record. It is not the complete legal health record.[facility]
--- NOTE | 2025-07-26 08:20 | MHC.PC.OV ---
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 Is last menstrual period known: No Post menopausal: No Patient : No Allergies No Known Allergies Allergy (Verified 07/26/25 08:35) Medication List - Last Reconciled 07/26/25 by Linda Amaya CNP albuterol sulfate 90 mcg/actuation 2 puffs inhalation Q4-6H PRN magnesium chloride mg PO omega-3 fatty acids 500 mg PO DAILY sertraline 25 mg PO DAILY 30 days trazodone 50 mg PO DAILY vitamin B comp and C no.3 (B Complex Plus Vitamin C) 1 cap PO DAILY Tobacco use date assessed: 07/26/25 Dental Screening Dental Screen Date: 07/26/25 Did you have a dental visit in the last 12 months?: Yes Did you have a dental problem in the last 6 months where you did not have access to dental care?: No Was dental information given to patient?: Patient has dentist HPI HPI Comments History of Present Illness Details 55-year-old female presents for hypercholesterolemia, prediabetes, anxiety, and depression follow-up. She admits to taking her medications as prescribed without adverse reactions. She reports controlled anxiety and depressive symptoms. She notes that she has been making healthy lifestyle changes. She offers no complaints and denies acute symptoms at this time. FORMERLY [facility] Medical History (Updated 04/22/25 @ 15:14 by Linda Amaya CNP) Obstructive sleep apnea Memory loss Arthritis Anxiety Hypersomnia Snoring Transient neurological symptoms Slurring of speech Asthma Obesity Pure hyperglyceridemia Vertigo Chondrocalcinosis Cyst of right ovary Ovarian tumor, malignant Insomnia Anxiety (~04/23/24) Surgical History Hx of appendectomy History of placement of ear tubes H/O medial meniscus repair of left knee H/O total hysterectomy Family History Sister Substance abuse Mother Depression Asthma Diabetes Social History Housing: House Alcohol intake: current Comment: 5 drinks/week Patient Tobacco Use Status: Former Tobacco user Cigarettes Per Day: 3 Years Smoked: 20 years Packs per year/per ci.00 e-Cigarette/Vaping Use: Currently Using Second Hand Smoke Exposure: Yes Patient : No service: No Current occupational status: employed 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 1. Little interest or pleasure in doing things: not at all 2. Feeling down, depressed, or hopeless: not at all 3. Trouble falling or staying asleep, or sleeping too much: several days 4. Feeling tired or having little energy: several days 5. Poor appetite or overeating: not at all 6. Feeling bad about yourself - or that you are a failure or have let yourself or your family down: not at all 7. Trouble concentrating on things, such as reading the newspaper or watching television: not at all 8. Moving or speaking so slowly that other people could have noticed. Or the opposite - being so fidgety or restless that you have been moving around a lot more than usual: not at all 9. Thoughts that you would be better off or of hurting yourself in some way: not at all Total score: 2 Depression Screening Interpretation: Negative Depression Screening Done: Yes 97878 - PHQ-9 Billing: Yes Source: Developed by Drs. Marcel Little, Laquita Guerra, Gasper Razo and colleagues, with an educational angela from [employer]. Thrive Questionnaire Date Thrive assessed: 12/08/24 I am a: Patient What is your living situation today?: I have a steady place to live Within the past 12 months, did the food you bought not last and you didn't have the money to get more?: Never true Within the past 12 months, did you worry whether your food would run out before you got money to buy more?: Never true Do you have trouble paying for medicines?: No Do you have trouble getting transportation to medical appointments?: No Do you have trouble paying your heating and electricity bill?: No Do you have trouble taking care of your child, family member or friend?: No Do you have trouble with day-to-day activities such as bathing, preparing meals, shopping, managing finances, etc.?: No Are you currently unemployed and looking for a job?: No Are you interested in more education?: No Please select the resources that you would like help with: None Currently or been in a relationship where the following occur: No concerns reported THRIVE Score: 0 VJ-7 AMB Questionnaire VJ-7 Date VJ - 7 assessed: 07/26/25 Feeling nervous, anxious, or on edge: 0 = Not at all Not being able to stop or control worryin = Not at all Worrying too much about different things: 0 = Not at all Trouble relaxin = Not at all Being so restless that it is hard to sit still: 0 = Not at all Becoming easily annoyed or irritable: 0 = Not at all Feeling afraid as if something awful might happen: 0 = Not at all Total VJ-7 score (0-4 normal; 5-9 mild; 10-14 moderate; 15-21 severe): 0 Source: Developed by Drs. Marcel Little, Laquita Guerra, Gasper Razo and colleagues, with an educational angela from [employer]. VJ-7 Assessment Billing VJ-7 Assessment Tool: VJ-7 Assessment 63596 Review of Systems Const Details: Const Denies chills, Denies fatigue, Denies fever(s), Denies headache(s) and Denies weakness ENT Denies dizziness and Denies headache(s) Card Denies chest pain, Denies lightheadedness, Denies dyspnea and Denies other (Palpitations) Resp Denies cough, Denies dyspnea, Denies wheezing and Denies other ( shortness of breath) GI Denies abdominal pain, Denies melena, Denies hematochezia, Denies change in bowel habits, Denies dyspepsia and Denies nausea Denies hematuria and Denies dysuria Musc Denies abnormal gait, Denies myalgias, Denies arthralgias, Denies numbness and Denies tingling Skin/Breast Denies rash, Denies unusual bruising and Denies wounds Neuro Denies abnormal gait, Denies dizziness, Denies headache(s), Denies memory loss, Denies numbness, Denies Sensory deficit (Neuro), Denies tingling and Denies weakness Psych Denies anxiety, Denies depression, Denies memory loss Endo Denies cold intolerance, Denies fatigue, Denies heat intolerance, Denies polydipsia and Denies polyuria Aller/Immun Denies wheezing Physical exam (Primary Care) Vital Signs: Last Vital Signs Temp 97.6 F 07/26/25 08:26 Pulse 65 07/26/25 08:26 Resp 16 07/26/25 08:26 BP 114/57 L 07/26/25 08:26 Pulse Ox 98 07/26/25 08:26 Oxygen Delivery Method Room Air 07/26/25 08:26 BMI result Body Mass Index 35.2 Tobacco/Smoking Status: Tobacco use Status Tobacco use date assessed 07/26/25 07/26/25 08:31 Patient Tobacco Use Status Former Tobacco user 07/26/25 08:23 e-Cigarette/Vaping Use Currently Using 07/26/25 08:23 PHQ-9: PHQ-9 Score PHQ-9: Total score 2 07/26/25 08:31 Depression Screening Interpretation: Negative Thrive Assessment: Date of Thrive Assessment Date Thrive assessed 12/08/24 07/26/25 08:23 Currently or been in a relationship where the following occur: No concerns reported Const Other: General: no acute distress and well developed Nutritional Appearance: well nourished Orientation/consciousness: patient oriented x3 [facility] Head: Yes normocephalic and Yes atraumatic Eyes General: appearance normal, both eyes and all related structures Pupils: Equal, round and reactive pupils present EOM: EOMs intact bilaterally Resp Effort & Inspection: normal respiratory effort Auscultation: clear to auscultation bilaterally Cardio Rate: regular rate Rhythm: regular rhythm Heart sounds: S1 normal heart sound present, S2 normal heart sound present, no gallops, no murmurs and no rubs Extrem General: Yes normal to inspection, No edema and No calf tenderness Skin General: warm and dry. Normal skin color. Normal skin turgor Neuro General: patient oriented x3, gait normal and no focal neuro deficit Cranial nerves: Yes Equal, round and reactive pupils present Cognition (Neuro): normal cognition Gait exam (Neuro): Normal gait present Sensory Exam: No Sensory deficit (Neuro) Psych Appearance: grossly normal Affect: normal affect Attitude: cooperative Thought process: Normal thought process present Coding Level of Care Code Est Pt Level 3 (30789) Diagnoses Hypercholesterolemia E78.00 Prediabetes R73.03 Anxiety F41.9 Seasonal depression F33.8 Additional Codes VJ-7 Assessment Billing - VJ-7 Assessment Tool: VJ-7 Assessment 45151 ([id number]) PHQ-9 - 14117 - PHQ-9 Billing: Yes ([id number]) Assessment & Plan Assessment & Plan (1) Hypercholesterolemia: Code(s): E78.00 - Pure hypercholesterolemia, unspecified Category: Medical Plan: Recent LDL level is elevated, 118; triglycerides, total cholesterol, and HDL levels are normal. Advised to limit foods high in saturated fat and avoid foods high in trans fat. Routine exercise encouraged. Fast for 10-12 hours, may drink water, and perform lipid panel blood work a few days before next visit. Follow-up in 3 months for transfer of care with a new provider within the practice, hypercholesterolemia, anxiety and depression. Return sooner with symptoms or concerns. Verbalized understanding and agreed with the plan. (2) Prediabetes: Code(s): R73.03 - Prediabetes Category: Medical Plan: Recent A1c is 5.9%. Previous A1c was 5.8%. Routine exercise and healthy diet, including low carbs encouraged. Will monitor A1c every 6-12 months. Verbalized understanding and agreed with plan. (3) Anxiety: Code(s): F41.9 - Anxiety disorder, unspecified Category: Medical Plan: Reports controlled anxiety and depressive symptoms. PHQ-9 and VJ-7 scores are normal. Continue current treatment regimen. Follow-up in 3 months Verbalized understanding and agreed with the plan. (4) Seasonal depression: Code(s): F33.8 - Other recurrent depressive disorders Category: Medical Plan: Plan as above. Orders: Orders Lipid Panel 3 Months E78.00 - Pure hypercholesterolemia, unspecified
[2025-07-26 08:26] VITALS: BP 114/57; PULSE 65; RESP 16; TEMP 36.4; O2SAT 98; BMI 35.2
--- OUTSIDE RECORDS SUMMARY | 2025-07-26 08:36 | XMS_ITS | Clinical Summary ---
Author Organization [facility] Address [address] [place] [id number] Phone Care Team Providers Care Intelligence Group Supervisor Name Role Phone Pcp, Unknown Primary Care [...] on file Insurance UNITED PPO [employer] [place] PPO Member Subscriber Plan / Payer (Ef fective 2018-Present) Name:Minerva Fisher Relation to Subscriber:Spouse Name:LEANDER FISHER Date of :1969 (Home) Address: [address] [place] [address] Payer ID:[id number] (NAIC) Type:PPO Address: [address] [employer] PPO [employer] [place] PPO [employer] PPO [employer] PPO [employer] PPO [employer] Care Teams Intelligence Group Supervisor Relationship Specialty Start Date End Date Pcp, Unknown PCP - General 03/10/25 Additional Source Comments The information contained in this document represents components of the legal health record. It is not the complete legal health record.[facility]
== END 2025-07-26 08:51 | disposition home or self-care (01) ==
LOC: HO.HMCFM 08:19
PROVIDERS: PCP Nurse Practitioner Family; Visit Provider Nurse Practitioner Family
DX: E78.00 Pure hypercholesterolemia, unspecified (principal); R73.03 Prediabetes; F41.9 Anxiety disorder, unspecified; F33.8 Other recurrent depressive disorders

== ENCOUNTER → 2025-07-26 08:19 | Outpatient (BNVA) | payer OTHER, SELFPAY | PROVIDERS: PCP Nurse Practitioner Family; Visit Provider Nurse Practitioner Family | DX: R73.03 Prediabetes (principal); E78.00 Pure hypercholesterolemia, unspecified; F41.9 Anxiety disorder, unspecified; F33.8 Other recurrent depressive disorders | CPT/HCPCS: 96127 ==

== ENCOUNTER 2025-08-10 07:56 | Outpatient (AMB) | payer OTHER, SELFPAY ==
[2025-08-10 08:03] VITALS: BP 132/84; PULSE 65; O2SAT 97; BMI 35.4
--- NOTE | 2025-08-10 08:03 | A.OFFVIS_ITS ---
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 CPAP 5-20 - 90 day compliance 100 % AHI 0.5 usage hrs 7 - 8 hrs MRI showed mild white matter changes. Carotid doppler normal Her right hand weakness has decreased .speech issues has resolved Mood is stable . History from initial visit-.It started in 2008 with brief episodes of right hand weakness, slurring of speech . muffled speech etc.The episodes lasted few seconds- taking a deep breath helped.SHe was worked up for TIA MRI brain showed non specific white matter changes, carotid doppler was normal ASHANTI normal Lyme negative LDL was elevated and she was started on atorvostatin . she has h/o anxiety and was very stressed at that time. she has h/o labrynthitis and has balance issues . she had a fall when she rushed down the stairs 1 year ago.No falls since then she denies double vision. she has hand tingling and was told she had carpal tunnel. In 2018 she was seen by Dr Rodríguez- he did EEG which was normal MRI showed white matter changes. she denies headaches during these episodes. she feels her espidoes have decreased- she feels her right leg drags when she is walking , she ott sword finding difficulties. Mood- is better. She is sleeping better with trazadone. she has loud snoring , Has some daytime fatigue. she started having mood issues 30 years ago when she was going through marital issues.she feels she did not deal with her parents divorce. she was seeing a psychiatrist about 20 years ago . [facility] Medical History Obstructive sleep apnea Memory loss Arthritis Anxiety Hypersomnia Snoring Transient neurological symptoms Slurring of speech Asthma Obesity Pure hyperglyceridemia Vertigo Chondrocalcinosis Cyst of right ovary Ovarian tumor, malignant Insomnia Anxiety (~04/23/24) Surgical History Hx of appendectomy History of placement of ear tubes H/O medial meniscus repair of left knee H/O total hysterectomy Family History Sister Substance abuse Mother Depression Asthma Diabetes Social History Housing: House Alcohol intake: current Comment: 5 drinks/week Patient Tobacco Use Status: Former Tobacco user Cigarettes Per Day: 3 Years Smoked: 20 years e-Cigarette/Vaping Use: Currently Using Second Hand Smoke Exposure: Yes service: No Current occupational status: employed 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 Current occupational exposures/hazards: No Cognitive needs: No Hearing needs: No Vision needs: Yes Physical Exam Vital Signs: Last Vital Signs Pulse 65 08/10/25 08:03 BP 132/84 08/10/25 08:03 Pulse Ox 97 08/10/25 08:03 Oxygen Delivery Method Room Air 08/10/25 08:03 BMI result Body Mass Index 35.4 Const General: cooperative, healthy appearing, comfortable and no acute distress Nutritional Appearance: obese Orientation/consciousness: patient oriented x3 Eyes Pupils: Equal, round and reactive pupils present Neck Neck: Yes no meningeal signs Neuro General: patient oriented x3, gait normal, tone normal, moves all extremities, no meningeal signs and no focal motor deficits Cranial nerves: Yes Facial sensation intact/muscles of mastication intact, Yes Equal, round and reactive pupils present, Yes Bilaterally intact EOM present, Yes Nystagmus not present, Yes Midline tongue present, Yes Symmetric palate elevation present and Yes Ability to bilaterally elevate shoulders present Cognition (Neuro): normal cognition Gait exam (Neuro): Normal gait present Motor exam (neuro): 5/5 motor strength present throughout and Normal motor muscle tone present throughout Coordination: [id number] test normal Psych Appearance: grossly normal Assessment & Plan Assessment & Plan (1) Obstructive sleep apnea: Code(s): G47.33 - Obstructive sleep apnea (adult) (pediatric) Category: Medical (2) Slurring of speech: Comment: ? anxiety related- resolved Code(s): R47.81 - Slurred speech Category: Medical (3) Transient neurological symptoms: Comment: resolved Code(s): R29.818 - Other symptoms and signs involving the nervous system Category: Medical Plan Continue CPAP 5-20 cm and compliance stressed MRI brain - reviewed will do MRI with bebeto for a more detailed eval. Carotid doppler - normal aspirin 81mg qd Coding Level of Care Code Est Pt Level 4 (81272) Diagnoses Obstructive sleep apnea G47.33 Slurring of speech R47.81 Transient neurological symptoms R29.818
== END 2025-08-10 08:26 | disposition home or self-care (01) ==
LOC: HO.HSMS 07:57
PROVIDERS: PCP Student in an Organized Health Care Education/Training Program; Visit Provider Psychiatry & Neurology Neurology
DX: G47.33 Obstructive sleep apnea (adult) (pediatric) (principal); R47.81 Slurred speech; R29.818 Other symptoms and signs involving the nervous system
CPT/HCPCS: 99214